=== PATIENT | male | born 1975 | race Caucasian/White ===

== ENCOUNTER 2020-10-06 19:23 | Inpatient (IN) ==
[2020-10-06] MEDS ORDERED: PANTOPRAZOLE BOLUS/DRIP 1 EA IV STA (19:54)
[2020-10-06] MEDS ORDERED: PANTOprazole 80 MG in DEXTROSE 5% 100 ML IV ONE (19:54)
[2020-10-06] MEDS ORDERED: SODIUM CHLORIDE 0.9% 1000ML 1,000 ML IV ONE (19:54)
--- NOTE | 2020-10-06 20:12 | Emergency Department Note ---
History of Present Illness General Chief complaint: Vomiting Stated complaint: VOMITING BLOOD, ALMOST PASSED OUT Time Seen by Provider: 10/06/20 19:35 Source: patient and family Mode of arrival: ambulatory Limitations: no limitations History of Present Illness Provider complaint: gi bleed Onset (ago): week(s) 2 Location: abdomen Radiation: non-radiation Severity: mild Pain Consistency: + constant Associated symptoms: + nausea/vomiting; no chest pain and no fever/chills Treatments prior to arrival: none This is a 45-year-old male presents emergency department with at bedside due to concern for GI bleed. Patient states 2 weeks ago he began having hard stools although still normal in color. Patient states he has had this previously and will increase his MiraLAX. He also then added a stool softener. States he had had some intermittent discomfort in the left upper quadrant, however no discernible pain. Patient states today he felt worse had a black formed stool, no other bright red blood. He then began to vomit. Patient vomited bright red blood multiple times and per family appeared pale and sweaty. Patient states he felt as though he was going to pass out so he laid down. Patient denies any prior history of peptic ulcer disease or GI bleed. Patient has previously had an anal fissure. Patient has previously had colonoscopy although he estimates this was approximately 15 years ago.Patient denies any use of aspirin, NSAIDs, or anticoagulation. No family history of any bleeding disorders or GI problems that he is aware of. Pt seen during a time of high acuity and national emergency pandemic while wearing PPE. Home Medications Medication Instructions Recorded Confirmed Type allopurinol 300 mg tablet 300 mg PO QA 08/19/19 10/06/20 History carvedilol 25 mg tablet 25 mg PO BID 08/19/19 10/06/20 History fenofibrate micronized 134 mg 134 mg PO DAILY 08/19/19 10/06/20 History capsule hydrochlorothiazide 25 mg tablet 25 mg PO DAILY 08/19/19 10/06/20 History lisinopril 40 mg tablet 40 mg PO DAILY 08/19/19 10/06/20 History rosuvastatin 10 mg tablet 10 mg PO DAILY 08/19/19 10/06/20 History amlodipine 5 mg PO DAILY 10/06/20 10/06/20 History clonidine HCl 0.3 mg PO BID 10/06/20 10/06/20 History fluticasone propionate 2 spray INTRANASAL DAILY 10/06/20 10/06/20 History hydralazine 25 mg PO TID 10/06/20 10/06/20 History Allergies Allergy/AdvReac Type Severity Reaction Status Date / Time No Known Allergies Allergy Mild Verified 10/06/20 21:38 Past Med/Surg History Medical History Dyslipidemia HTN (hypertension) Surgical History Hx of rotator cuff surgery Hx of wisdom tooth extraction Social History Smoking Status: Never smoker Hx Alcohol Use: Yes Alcohol type: other Hx Substance Use: No Preferred Language: Irish Beliefs That Will Affect Care: None marital status: Current Living Situation: Spouse current occupational status: employed 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 and A total of 10 systems reviewed and were otherwise negative Physical Exam Vital Signs Vital Signs - 24 hr 10/07/20 00:20 Pulse Rate 63 Pulse Rate from SpO2 Sensor 63 Respiratory Rate 21 Pulse Oximetry 97 GENERAL: alert, unwell appearing, well nourished, no distress, non-toxic, mildly diaphoretic EYE EXAM: normal conjunctiva, PERRL and EOM's grossly intact OROPHARYNX: no exudate, no erythema, lips, buccal mucosa, and tongue normal and mucous membranes are moist NECK: supple, no nuchal rigidity, no adenopathy, non-tender LUNGS: Clear to auscultation. Normal chest wall mechanics, no w/r/r HEART: no murmurs, S1 normal and S2 normal ABDOMEN: abdomen soft, non-tender, normo-active bowel sounds, no masses, no rebound or guarding. BACK: Back is symmetrical on inspection and there is no deformity, no midline tenderness, no CVA tenderness. SKIN: no rashes and no bruising, no petechiae UPPER EXTREMITIES: upper extremities are grossly normal. FROM, nml pulses b/l. LOWER EXTREMITIES: No pitting edema. FROM, nml pulses b/l. NEURO EXAM: Normal sensorium, cranial nerves II-XII grossly intact, normal speech, no gross weakness of arms, no gross weakness of legs. Gross sensation intact. Course Course 2001: BP improved. No recurrent hypotension or near syncope. No recurrent vomiting. 2127: Updated patient on results. was able to access his [facility] records to find a CBC from 2019 where his hemoglobin was 13.2. Prior hemoglobin in our EMR was 14. Patient states he is feeling slightly improved. Still awaiting CT. 2239: Updated patient on results. No recurrent pain or nausea. Blood pressure now elevated however patient due for nighttime blood pressure medications. 2324: Discussed with Dr. Rick. Administered Medications Carvedilol (Carvedilol 25 Mg Tab) 25 mg PO BID ESTHELA Stop: 11/06/20 08:59 Last Admin: 10/07/20 11:03 Dose: Not Given Documented by: [id number] Clonidine HCl (Clonidine Hcl 0.3 Mg Tab) 0.3 mg PO BID ESTHELA Stop: 11/06/20 08:59 Last Admin: 10/07/20 11:03 Dose: Not Given Documented by: [id number] Fluticasone Propionate (Fluticasone Propionate Na Spr 16 Gm Btl) 2 sprays NA DAILY ESTHELA Stop: 11/06/20 08:59 Last Admin: 10/07/20 08:17 Dose: 2 sprays Documented by: [id number] Sodium Chloride (Nss 1000ml) 1,000 mls @ 125 mls/hr IV .Q8H ESTHELA Stop: 11/06/20 02:07 Last Admin: 10/07/20 20:49 Dose: 125 mls/hr Documented by: [id number] Infusion: 10/07/20 18:56 Dose: 125 mls/hr Documented by: [id number] Admin: 10/07/20 10:56 Dose: 125 mls/hr Documented by: [id number] Infusion: 10/07/20 10:32 Dose: 125 mls/hr Documented by: [id number] Admin: 10/07/20 02:32 Dose: 125 mls/hr Documented by: [id number] Pantoprazole Sodium 40 mg/ (Dextrose) 100 mls @ 20 mls/hr IV Q5H ESTHELA Stop: 11/06/20 05:59 Last Admin: 10/07/20 21:02 Dose: 8 mg/hr, 20 mls/hr Documented by: [id number] Infusion: 10/07/20 21:02 Dose: 8 mg/hr, 20 mls/hr Documented by: [id number] Admin: 10/07/20 16:40 Dose: 8 mg/hr, 20 mls/hr Documented by: [id number] Infusion: 10/07/20 16:04 Dose: 0 mg/hr, 0 mls/hr Documented by: [id number] Admin: 10/07/20 10:58 Dose: 8 mg/hr, 20 mls/hr Documented by: [id number] Infusion: 10/07/20 10:58 Dose: 8 mg/hr, 20 mls/hr Documented by: [id number] Admin: 10/07/20 06:27 Dose: 8 mg/hr, 20 mls/hr Documented by: [id number] Insulin Aspart (Insulin Aspart 100 Units/Ml 3 Ml Pen) 0 units SC ACHS ESTHELA Stop: 11/06/20 05:59 Last Admin: 10/07/20 21:12 Dose: Not Given Documented by: [id number] Cosigned by: [id number] Admin: 10/07/20 17:33 Dose: 3 units Documented by: [id number] Cosigned by: [id number] Discontinued Medications Fentanyl Citrate (Fentanyl Citrate 100 Mcg/2 Ml Vial) Confirm Administered Dose 100 mcg .ROUTE .STK-MED ONE Stop: 10/07/20 12:39 Last Admin: 10/07/20 13:58 Dose: Not Given Documented by: [id number] Hydralazine HCl (Hydralazine Hcl 20 Mg/Ml Vial) 10 mg IV NOW STA Stop: 10/06/20 22:55 Last Admin: 10/07/20 01:21 Dose: Not Given Documented by: [id number] Sodium Chloride (Nss 1000ml) 1,000 mls @ 999 mls/hr IV .Q1H1M ONE Stop: 10/06/20 20:54 Last Infusion: 10/06/20 21:45 Dose: 0 mls/hr Documented by: [id number] Admin: 10/06/20 20:12 Dose: 999 mls/hr Documented by: [id number] Pantoprazole Sodium (Protonix Bolus/Drip) 0 mls @ 1 mls/hr IV ONE STA Stop: 10/06/20 19:55 Last Infusion: 10/07/20 05:07 Dose: 0 mls/hr Documented by: [id number] Admin: 10/06/20 21:05 Dose: 1 mls/hr Documented by: [id number] Pantoprazole Sodium 40 mg/ (Dextrose) 100 mls @ 20 mls/hr IV Q5H ESTHELA Stop: 11/05/20 20:09 Last Infusion: 10/07/20 07:26 Dose: 0 mg/hr, 0 mls/hr Documented by: [id number] Admin: 10/07/20 01:33 Dose: 8 mg/hr, 20 mls/hr Documented by: [id number] Infusion: 10/07/20 01:08 Dose: 0 mg/hr, 0 mls/hr Documented by: [id number] Admin: 10/06/20 22:04 Dose: 8 mg/hr, 20 mls/hr Documented by: [id number] Pantoprazole Sodium 80 mg/ (Dextrose) 120 mls @ 400 mls/hr IV NOW ONE Stop: 10/06/20 20:11 Last Infusion: 10/06/20 21:06 Dose: 0 mls/hr Documented by: [id number] Admin: 10/06/20 20:29 Dose: 400 mls/hr Documented by: [id number] Insulin Aspart (Insulin Aspart 100 Units/Ml 3 Ml Pen) 0 units SC Q6 ESTHELA Stop: 11/06/20 05:59 Last Admin: 10/07/20 14:18 Dose: Not Given Documented by: [id number] Cosigned by: [id number] Admin: 10/07/20 06:28 Dose: Not Given Documented by: [id number] Ioversol (Ioversol 100ml) 93 ml IV ONCE ONE Stop: 10/06/20 21:33 Last Admin: 10/06/20 21:32 Dose: 93 ml Documented by: [id number] Lidocaine HCl (Lidocaine Hcl 2% 2 Ml Vial/Amp(20mg/Ml)) Confirm Administered Dose 4 ml INFIL .STK-MED ONE Stop: 10/07/20 12:39 Last Admin: 10/07/20 13:59 Dose: Not Given Documented by: [id number] Metoprolol Tartrate (Metoprolol Tartrate 1 Mg/Ml Vial) 5 mg IV Q6 ESTHELA Stop: 11/06/20 11:59 Last Admin: 10/07/20 13:57 Dose: Not Given Documented by: [id number] Miscellaneous Information (Nursing To Pharmacy Communication) 1 ea N/A TODAY S Stop: 11/06/20 15:14 Last Admin: 10/07/20 16:11 Dose: Not Given Documented by: [id number] Nitroglycerin (Nitroglycerin 2% Ointment 30gm Tube) 1 inch EXT NOW ONE Stop: 10/07/20 13:46 Last Admin: 10/07/20 13:58 Dose: 1 inch Documented by: [id number] Ondansetron HCl (Ondansetron Inj 2 Mg/Ml 2 Ml Vial) Confirm Administered Dose 4 mg .ROUTE .STK-MED ONE Stop: 10/07/20 12:39 Last Admin: 10/07/20 13:58 Dose: Not Given Documented by: [id number] Propofol (Propofol Iv Emulsion 10 Mg/Ml 20 Ml Vial) Confirm Administered Dose 400 mg IV .STK-MED ONE Stop: 10/07/20 12:39 Last Admin: 10/07/20 13:58 Dose: Not Given Documented by: [id number] Critical Care Time Critical Care Time: Yes Total Critical Care Time: 42 Critical care of 42 min performed to assess and manage high likelihood of life- threatening GI bleed and hypotension, involving labs and imaging performed with assessment to evaluate GI bleed and hypotension diagnosis with frequent reassessment. This time includes bedside time, treatment discussions with patient/family/consultants, documentation time and excludes procedure time. Medical Decision Making Differential Diagnosis Differential diagnosis includes etiologies such as diverticulosis, AVM, coagulopathy, colitis, inflammatory bowel disease, malignancy, Malgorzata-Elias tear, esophagitis, peptic ulcer disease, variceal bleed, gastritis, epistaxis, fissure, hemorrhoids, as well as others were entertained. Medical Records Attestation: I reviewed the patient's medical records. Home Medications Current Medication List: was personally reviewed by me Laboratory Data Attestation: I reviewed the patient's lab results. Result diagrams: 10/07/20 17:21 10/07/20 04:54 Lab Results 10/06/20 10/06/20 10/06/20 Range/Units 20:07 20:07 20:07 WBC 14.95 H (4.8-10.8) K/uL RBC 3.57 L (4.7-6.1) M/uL Hgb 10.2 L (14.0-18.0) g/dL Hct 30.6 L (42-52) % MCV 85.7 (80-100) fL MCH 28.6 (25-34) pg MCHC 33.3 (32-36) g/dL RDW Std Deviation 44.1 (36.4-46.3) fL RDW Coeff of Luis Angel 14.1 (11.5-14.5) % Plt Count 325 (130-400) K/uL MPV 10.3 (7.4-10.4) fL Immature Gran % (Auto) 0.2 % Neut % (Auto) 72.0 % Lymph % (Auto) 20.0 % [place] % (Auto) 6.2 % Eos % (Auto) 1.3 % Baso % (Auto) 0.3 % Neut # (Auto) 10.77 H (1.4-6.5) K/uL Lymph # (Auto) 2.99 (1.2-3.4) K/uL [place] # (Auto) 0.92 H (0.11-0.59) K/uL Eos # (Auto) 0.20 (0-0.5) K/uL Baso # (Auto) 0.04 (0-0.2) K/uL Immature Gran # (Auto) 0.03 H (0.00-0.02) K/uL PT 11.6 (9.0-12.0) Seconds INR 1.2 H (0.9-1.1) Sodium (136-145) mmol/L Potassium (3.5-5.1) mmol/L Chloride (98-107) mmol/L Carbon Dioxide (21-32) mmol/L Anion Gap (3-11) BUN (7-18) mg/dl Creatinine (0.6-1.4) mg/dl Est Cr Clr Drug Dosing ml/min Est GFR ( Amer) Est GFR (Non-Af Amer) BUN/Creatinine Ratio (10-20) Glucose (70-99) mg/dl Calcium (8.5-10.1) mg/dl Magnesium (1.8-2.4) mg/dl Total Bilirubin (0.2-1) mg/dl AST (15-37) U/L ALT (12-78) U/L Alkaline Phosphatase (45-117) U/L Troponin I (0-0.045) ng/ml Total Protein (6.4-8.2) gm/dl Albumin (3.4-5.0) gm/dl Globulin (2.5-4.0) gm/dl Albumin/Globulin Ratio (0.9-2) Lipase (73-393) U/L COVID-19 Eval Order SARS-CoV-2 (PCR) (Negative) Influenza Type A (PCR) (Neg) Influenza Type B (PCR) (Neg) RSV (RT-PCR) (Neg) Blood Type O Positive Antibody Screen NEGATIVE Crossmatch See Detail 10/06/20 10/06/20 10/06/20 Range/Units 20:07 23:06 23:24 WBC (4.8-10.8) K/uL RBC (4.7-6.1) M/uL Hgb 10.1 L (14.0-18.0) g/dL Hct 29.9 L (42-52) % MCV (80-100) fL MCH (25-34) pg MCHC (32-36) g/dL RDW Std Deviation (36.4-46.3) fL RDW Coeff of Luis Angel (11.5-14.5) % Plt Count (130-400) K/uL MPV (7.4-10.4) fL Immature Gran % (Auto) % Neut % (Auto) % Lymph % (Auto) % [place] % (Auto) % Eos % (Auto) % Baso % (Auto) % Neut # (Auto) (1.4-6.5) K/uL Lymph # (Auto) (1.2-3.4) K/uL [place] # (Auto) (0.11-0.59) K/uL Eos # (Auto) (0-0.5) K/uL Baso # (Auto) (0-0.2) K/uL Immature Gran # (Auto) (0.00-0.02) K/uL PT (9.0-12.0) Seconds INR (0.9-1.1) Sodium 141 (136-145) mmol/L Potassium 3.6 (3.5-5.1) mmol/L Chloride 107 (98-107) mmol/L Carbon Dioxide 27 (21-32) mmol/L Anion Gap 7.0 (3-11) BUN 56 H (7-18) mg/dl Creatinine 1.56 H (0.6-1.4) mg/dl Est Cr Clr Drug Dosing 75.3 ml/min Est GFR ( Amer) 60.8 Est GFR (Non-Af Amer) 52.5 BUN/Creatinine Ratio 36.2 H (10-20) Glucose 204 H (70-99) mg/dl Calcium 8.8 (8.5-10.1) mg/dl Magnesium 1.8 (1.8-2.4) mg/dl Total Bilirubin 0.4 (0.2-1) mg/dl AST 13 L (15-37) U/L ALT 22 (12-78) U/L Alkaline Phosphatase 35 L (45-117) U/L Troponin I 0.029 (0-0.045) ng/ml Total Protein 6.9 (6.4-8.2) gm/dl Albumin 3.6 (3.4-5.0) gm/dl Globulin 3.3 (2.5-4.0) gm/dl Albumin/Globulin Ratio 1.1 (0.9-2) Lipase 124 (73-393) U/L COVID-19 Eval Order CovFluRsv at [facility] SARS-CoV-2 (PCR) (Negative) Influenza Type A (PCR) (Neg) Influenza Type B (PCR) (Neg) RSV (RT-PCR) (Neg) Blood Type Antibody Screen Crossmatch 10/06/20 Range/Units 23:24 WBC (4.8-10.8) K/uL RBC (4.7-6.1) M/uL Hgb (14.0-18.0) g/dL Hct (42-52) % MCV (80-100) fL MCH (25-34) pg MCHC (32-36) g/dL RDW Std Deviation (36.4-46.3) fL RDW Coeff of Luis Angel (11.5-14.5) % Plt Count (130-400) K/uL MPV (7.4-10.4) fL Immature Gran % (Auto) % Neut % (Auto) % Lymph % (Auto) % [place] % (Auto) % Eos % (Auto) % Baso % (Auto) % Neut # (Auto) (1.4-6.5) K/uL Lymph # (Auto) (1.2-3.4) K/uL [place] # (Auto) (0.11-0.59) K/uL Eos # (Auto) (0-0.5) K/uL Baso # (Auto) (0-0.2) K/uL Immature Gran # (Auto) (0.00-0.02) K/uL PT (9.0-12.0) Seconds INR (0.9-1.1) Sodium (136-145) mmol/L Potassium (3.5-5.1) mmol/L Chloride (98-107) mmol/L Carbon Dioxide (21-32) mmol/L Anion Gap (3-11) BUN (7-18) mg/dl Creatinine (0.6-1.4) mg/dl Est Cr Clr Drug Dosing ml/min Est GFR ( Amer) Est GFR (Non-Af Amer) BUN/Creatinine Ratio (10-20) Glucose (70-99) mg/dl Calcium (8.5-10.1) mg/dl Magnesium (1.8-2.4) mg/dl Total Bilirubin (0.2-1) mg/dl AST (15-37) U/L ALT (12-78) U/L Alkaline Phosphatase (45-117) U/L Troponin I (0-0.045) ng/ml Total Protein (6.4-8.2) gm/dl Albumin (3.4-5.0) gm/dl Globulin (2.5-4.0) gm/dl Albumin/Globulin Ratio (0.9-2) Lipase (73-393) U/L COVID-19 Eval Order SARS-CoV-2 (PCR) NEGATIVE (Negative) Influenza Type A (PCR) Negative (Neg) Influenza Type B (PCR) Negative (Neg) RSV (RT-PCR) Negative (Neg) Blood Type Antibody Screen Crossmatch Imaging Data Radiologist's Impression: Abdomen/Pelvis CT 10/06/20 20:12 CT abd pelvis IV con only CLINICAL HISTORY: Left upper quadrant abdominal pain. Gastrointestinal hemorrhage. COMPARISON STUDY: None. TECHNIQUE: Patient was scanned in a dynamic helical fashion during intravenous administration of 93 cc of Optiray 320 A dose lowering technique was utilized adhering to the principles of ALARA. CT DOSE: 922.02 mGy.cm FINDINGS: Lower chest: There are very subtle nonspecific left lower lobe groundglass opacities. Liver: The contrast-enhanced liver is normal in size, contour, and attenuation. There is no intrahepatic biliary ductal dilatation. The hepatic veins and portal veins are patent. Gallbladder: Unremarkable. Spleen: Top normal in size Pancreas: Unremarkable. Adrenal glands: Unremarkable. Kidneys: There is symmetric renal cortical enhancement. The kidneys are normal in size without hydronephrosis. Bowel: There are no transition zones indicate bowel obstruction. There is mild gastric distention. There is mixed attenuation gastric contents. Hemorrhage not excluded. There is no evidence of acute appendicitis. There are scattered colonic diverticula. There is no evidence of acute diverticulitis. Peritoneum: There is no intraperitoneal free air or abdominal ascites. There are small fat-containing abdominal hernia Vasculature: The abdominal aorta is normal in course and caliber. Adenopathy: None. Pelvic viscera: The bladder, and pelvic viscera are unremarkable. Skeletal structures: No destructive osseous lesions are seen. IMPRESSION: 1. No evidence of bowel obstruction. No evidence of free air 2. Normal appendix. 3. No evidence of acute diverticulitis. 4. Mild gastric distention with mixed attenuation contents. Hemorrhage not excluded. ACT 112: Negative or not required by law. Electronically signed by: Daniel Red M.D. 10/07/2020 7:[address] abdomen and pelvis with contrast: Stomach is distended with ingested material, fluid, and gas. Hyperdense material within the stomach may represent blood products. No hydronephrosis or obstruction. Decompressed sigmoid colon. Mild diverticulosis without evidence of diverticulitis. No bowel obstruction. Normal appendix. Mild prominence of the bladder wall may be secondary to underdistention. Please correlate with urinalysis of concern for cystitis. Small fat-containing billable hernia. Radiologist: Bella Jerez MD ECG Data Attestation: I personally reviewed and interpreted this ECG as follows: Indication: + vomiting and + weakness Rate (beats per minute): 58 Rhythm: + sinus bradycardia ECG Intervals/blocks: + Normal QRS and + Normal QT ECG [place]: + Normal ECG ST segments: + Normal ST segments MDM Narrative This is a 45-year-old male who presents due to concern for a near syncopal event and abrupt onset GI bleed. Patient initially with an episode of melena followed by multiple episodes of hematemesis and a near syncopal event. Patient with no prior GI history and no prior GI bleed. No obvious etiology of his symptoms. Patient initially hypotensive, pale, and diaphoretic on arrival. Patient laid supine, IV started and IV fluids initiated for the hypotension. No ectopy or dysrhythmia on telemetry. Patient denied abdominal pain or nausea on my initial exam. Labs drawn and sent including a type and screen. Patient started on Pr otonix bolus and drip. No history of significant alcohol abuse otherwise suspect esophageal varices. No use of anticoagulation to reverse. Following improvement in blood pressure and lab results patient was sent for CT imaging to rule out other causes. CT was reassuring although debris was noted in the stomach which is likely blood given recent events. A repeat H&H was drawn while patient was still in the emergency room as a precaution to make sure that his H&H was not continuing to trend down. Case discussed with hospitalist for additional evaluation and management and likely GI intervention. Patient and made aware of all results and were in agreement with plan. As patient was monitored, blood pressure became increased. Patient does have a history of hypertension and takes multiple medications. Patient was due in the evening for his blood pressure medications and given he was n.p.o., I began to slowly give him some of his medications IV. An order was placed for continuous cardiac monitoring. The monitor shows a rate of _82_ with _normal sinus_ rhythm. Impression & Plan Acute GI bleeding, Vomiting, Melena, Hypertension Discharge Plan Visit Data Chief Complaint: Vomiting Stated Complaint: VOMITING BLOOD, ALMOST PASSED OUT ED Provider: Jamilah Baker Discharge Problem: Acute GI bleeding, Vomiting, Melena, Hypertension Patient Disposition: Admitted As Inpatient Discharge Instructions Interventions: ED Discharge Assessment Last Done: 10/07/20 02:15 Discharge Problem: Vomiting Qualifiers: Vomiting type: unspecified Vomiting Intractability: non-intractable Nausea presence: without nausea Qualified Code(s): R11.11 - Vomiting without nausea Hypertension Qualifiers: Hypertension type: essential hypertension Qualified Code(s): I10 - Essential (primary) hypertension
[2020-10-06 20:20] LABS: Basophils # (auto) 0.04 K/uL (0-0.2); Basophils % (auto) 0.3 %; Eosinophils % (auto) 1.3 %; Hematocrit (blood only) 30.6 % (42-52); Hemoglobin 10.2 g/dL (14.0-18.0); Immature Granulocytes # (auto) 0.03 K/uL (0.00-0.02); Immature Granulocytes % (auto) 0.2 %; Lymphocytes # (auto) 2.99 K/uL (1.2-3.4); Mean Corpuscular Hemoglobin 28.6 pg (25-34); Mean Corpuscular Hgb Conc 33.3 g/dL (32-36); Mean Corpuscular Volume 85.7 fL (80-100); Mean Platelet Volume 10.3 fL (7.4-10.4); Monocytes # (auto) 0.92 K/uL (0.11-0.59); Monocytes % (auto) 6.2 %; Neutrophils # (auto) 10.77 K/uL (1.4-6.5); Platelet Count 325 K/uL (130-400); RDW Coefficient of Variation 14.1 % (11.5-14.5); RDW Standard Deviation 44.1 fL (36.4-46.3); Red Blood Count 3.57 M/uL (4.7-6.1); White Blood Count 14.95 K/uL (4.8-10.8)
[2020-10-06 20:28] LABS: INR 1.2 (0.9-1.1); Prothrombin Time 11.6 Seconds (9.0-12.0)
[2020-10-06 20:45] LABS: Albumin Level 3.6 gm/dl (3.4-5.0); BUN Creatinine Ratio 36.2 (10-20); Calcium 8.8 mg/dl (8.5-10.1); Creatinine Clr Calc Pharmacy 75.3 ml/min; Est GFR (African American) 60.8; Est GFR (Non-African American) 52.5; Magnesium 1.8 mg/dl (1.8-2.4); Potassium 3.6 mmol/L (3.5-5.1)
[2020-10-06 20:50] LABS: Albumin Globulin Ratio 1.1 (0.9-2); Bilirubin,Total 0.4 mg/dl (0.2-1); Globulin 3.3 gm/dl (2.5-4.0); Total Protein 6.9 gm/dl (6.4-8.2); Troponin I 0.029 ng/ml (0-0.045)
[2020-10-06] MEDS ORDERED: OPTIRAY 320 100ml IV ONE (21:32)
[2020-10-06] MEDS: PANTOprazole 40 MG in DEXTROSE 5% 100 ML IV SCH (22:04)
[2020-10-06] MEDS ORDERED: hydrALAZINE HCL 20 MG/ML VIAL IV STA (22:54)
[2020-10-06 23:22] LABS: Hematocrit (blood only) 29.9 % (42-52); Hemoglobin 10.1 g/dL (14.0-18.0)
[2020-10-07 00:20] LABS: Influenza A virus by PCR Negative (Neg); Influenza B virus by PCR Negative (Neg); RSV by PCR Negative (Neg); SARS CoV2 RNA(COVID-19) InHosp NEGATIVE (Negative)
[2020-10-07] MEDS: PANTOprazole 40 MG in DEXTROSE 5% 100 ML IV SCH ×5 (01:33→21:02)
[2020-10-07] MEDS ORDERED: hydrALAZINE HCL 20 MG/ML VIAL IV PRN (02:08)
[2020-10-07] MEDS ORDERED: ONDANSETRON INJ 2 MG/ML 2 ML VIAL IV PRN (02:08)
[2020-10-07] MEDS ORDERED: NITROGLYCERIN SL 0.4 MG/TAB TAB SL PRN (02:08)
[2020-10-07] MEDS ORDERED: SODIUM CHLORIDE 0.9% 250 ML IV PRN (02:08)
[2020-10-07] MEDS: SODIUM CHLORIDE 0.9% 1000ML 1,000 ML IV SCH ×3 (02:32→20:49)
[2020-10-07] MEDS ORDERED: CARBOHYDRATES FOR HYPOGLYCEMIA PO PRN (02:45)
[2020-10-07] MEDS ORDERED: GLUCOSE 40% GEL 15 GM TUBE PO PRN (02:45)
[2020-10-07] MEDS ORDERED: GLUCAGON FOR INJ 1 MG VIAL SQ PRN (02:45)
[2020-10-07] MEDS ORDERED: DEXTROSE 50% 50 ML SYRINGE IV PRN (02:45)
[2020-10-07] MEDS ORDERED: GLUCOSE 10 TABS/TUBE PO PRN (02:45)
--- NOTE | 2020-10-07 03:32 | History and Physical Report ---
DATE OF ADMISSION: 10/07/2020 CHIEF COMPLAINT: GI bleed. HISTORY OF PRESENT ILLNESS: This is a 45-year-old male with past medical history significant for gout, chronic sinusitis, allergic rhinitis, moderate obstructive sleep apnea, on CPAP, hypertension, obesity, chronic kidney disease stage II, persistent proteinuria, who presents with hematemesis. The patient says around 7:00 p.m., he had several episodes of bloody vomiting. Prior to that, he had episode of black stools. This is the first time he is having this and they brought the utensil in which he vomited. It seems to be a significant amount of bloody vomiting. Currently, the vomiting has stopped. His hemoglobin is 10.1 in the ER and his baseline hemoglobin possibly around 14. Currently resting comfortably and hemodynamically stable. The patient denies taking any aspirin or any [id number] NSAIDs. Does not smoke. Drinks alcohol occasionally. He had an episode of anal fissure about 15 years ago. At that time, the colonoscopy was done which was okay as per the patient, since then no similar complaints. No abdominal pain. Denies any chest pain, no shortness of breath. [place] dizzy after this episode. No headache, no blurred vision, no earache, no runny nose, no sore throat, no loss of sense of smell or taste. No cough, no fever, no chills. Currently resting comfortably and hemodynamically stable. SARS-CoV-2 negative. ALLERGIES: No known drug allergies. PAST MEDICAL HISTORY: As mentioned above. PAST SURGICAL HISTORY: Tooth extraction in 1995, right rotator cuff repair in 2008, treatment of anal fissure in 2003, vasectomy in 2004. MEDICATIONS: The patient is on allopurinol 300 mg p.o. a.m., amlodipine 5 mg p.o. daily, Coreg 25 mg p.o. b.i.d., clonidine 0.3 mg p.o. b.i.d., fenofibrate 134 mg p.o. daily, Flonase 2 sprays intranasal daily, hydralazine 25 mg p.o. t.i.d., hydrochlorothiazide 25 mg p.o. daily, lisinopril 40 mg p.o. daily, Crestor 10 mg p.o. daily. FAMILY HISTORY: Significant for father has heart disorder, PMR; mother had sleep apnea. SOCIAL HISTORY: . No smoking, no alcohol, no drug use. REVIEW OF SYSTEMS: As per HPI. Rest of the review of systems negative. PHYSICAL EXAMINATION: GENERAL: The patient is obese, not in acute distress. VITAL SIGNS: Temperature 36.6, pulse 62, respiratory rate 14, blood pressure 157/84, oxygen 99% on room air. HEENT: Pupils are equal, round, and reactive to light. No pallor, no icterus. Oral mucosa moist. NECK: No JVD, no neck masses seen. CARDIOVASCULAR: S1, S2 heard, regular rate and rhythm, no murmur, no gallop. RESPIRATORY SYSTEM: Normal AP diameter. No accessory muscle use. No wheezing, no crackles. ABDOMEN: Soft, bowel sounds present, nontender. No distention. CENTRAL NERVOUS SYSTEM: Cranial nerves II-XII are grossly intact. Nonfocal. EXTREMITIES: No edema, no erythema. LABORATORY DATA: WBC 14.9, hemoglobin 10.1, hematocrit 29.9, platelets 325. PT 11.6, INR 1.2. Sodium 141, potassium 3.6, chloride 107, bicarbonate 27, BUN 56, creatinine 1.5, serum glucose 204, calcium 8.8, magnesium 1.8, total bilirubin 0.4, AST 13, ALT 22, alkaline phosphatase 35. Troponin I of 0.029, lipase 124. SARS-CoV-2 PCR negative. Influenza A and B PCR negative. RSV PCR negative. EKG: Sinus bradycardia at the rate of 58, no acute ST changes seen. IMAGING DATA: CT of abdomen and pelvis with contrast shows stomach is distended with ingested material, fluid and gas. Hyperdense material within the stomach may represent blood products. No hydronephrosis or obstructing. Decompressed sigmoid colon. Mild diverticulosis without evidence of diverticulitis. No bowel obstruction. Normal appendix. Mild prominence of the bladder wall may be secondary to under distention. Small fat containing umbilical hernia. ASSESSMENT AND PLAN: This is a 45-year-old male who presents with significant hematemesis. 1. Hematemesis and also black stools: CAT scan is showing possible blood products in the stomach, not on aspirin or any NSAIDS. No history of alcoholism or smoking. This is the first episode, currently it seems bleeding has stopped. Started on Protonix drip in the ER, which will be continued. Will place him on IV fluids at normal saline at 125 mL per hour. Keep him n.p.o. Monitor in the tele floor. Consult GI and closely monitor. 2. Recent diagnosis of diabetes: The patient says he lost about 45 pounds in 6 months, but denies any heartburn or any symptoms. Will follow the blood sugars. We will place him on insulin sliding scale. 3. History of hypertension: Diagnosed in high school. Follows with nephrology. 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 Will continue with Coreg and clonidine if able to take p.o. and placed him on IV hydralazine p.r.n. If not even able to take Coreg and clonidine p.o., will change to clonidine patch and IV Lopressor. We will hold amlodipine, hydrochlorothiazide, and p.o. hydralazine and lisinopril for now and monitor the blood pressure closely. 4. Acute kidney injury on chronic kidney disease stage II secondary to longstanding hypertension. Baseline creatinine around 1, currently with creatinine of 1.5, most likely from above, getting fluids. Follow the repeat labs in a.m. 5. Obstructive sleep apnea, on CPAP. 6. Gout, on allopurinol, which we will hold. 7. Hyperlipidemia, on statin, which we will hold for now. 8. Deep vein thrombosis prophylaxis: Sequential compression devices. DISPOSITION: Closely monitor in the tele floor. Level 1 full code. Expect to discharge home and follow with family doctor. CARLI
[2020-10-07 05:08] LABS: Basophils # (auto) 0.02 K/uL (0-0.2); Basophils % (auto) 0.2 %; Eosinophils # (auto) 0.01 K/uL (0-0.5); Eosinophils % (auto) 0.1 %; Hematocrit (blood only) 27.5 % (42-52); Hemoglobin 9.1 g/dL (14.0-18.0); Immature Granulocytes # (auto) 0.03 K/uL (0.00-0.02); Immature Granulocytes % (auto) 0.3 %; Lymphocytes # (auto) 1.76 K/uL (1.2-3.4); Lymphocytes % (auto) 18.6 %; Mean Corpuscular Hemoglobin 28.3 pg (25-34); Mean Corpuscular Hgb Conc 33.1 g/dL (32-36); Mean Corpuscular Volume 85.7 fL (80-100); Mean Platelet Volume 9.7 fL (7.4-10.4); Monocytes # (auto) 0.84 K/uL (0.11-0.59); Monocytes % (auto) 8.9 %; Neutrophils # (auto) 6.78 K/uL (1.4-6.5); Neutrophils % (auto) 71.9 %; Platelet Count 287 K/uL (130-400); RDW Coefficient of Variation 14.2 % (11.5-14.5); RDW Standard Deviation 44.1 fL (36.4-46.3); Red Blood Count 3.21 M/uL (4.7-6.1); White Blood Count 9.44 K/uL (4.8-10.8)
[2020-10-07 05:25] LABS: BUN Creatinine Ratio 38.8 (10-20); Calcium 8.6 mg/dl (8.5-10.1); Est GFR (African American) 66.5; Est GFR (Non-African American) 57.3; Magnesium 1.8 mg/dl (1.8-2.4); Potassium 3.8 mmol/L (3.5-5.1)
[2020-10-07] MEDS: INSULIN ASPART 100 UNITS/ML 3 ML PEN SC SCH ×4 (06:28→21:12)
--- NOTE | 2020-10-07 07:25 | CT Scan Report ---
CT abd pelvis IV con only CLINICAL HISTORY: Left upper quadrant abdominal pain. Gastrointestinal hemorrhage. COMPARISON STUDY: None. TECHNIQUE: Patient was scanned in a dynamic helical fashion during intravenous administration of 93 c c of Optiray 320 A dose lowering technique was utilized adhering to the principles of ALARA. CT DOSE: 922.02 mGy.cm FINDINGS: Lower chest: There are very subtle nonspecific left lower lobe groundglass opacities. Liver: The contrast-enhanced liver is normal in size, contour, and attenuation. There is no intrahepa tic biliary ductal dilatation. The hepatic veins and portal veins are patent. Gallbladder: Unremarkable. Spleen: Top normal in size Pancreas: Unremarkable. Adrenal glands: Unremarkable. Kidneys: There is symmetric renal cortical enhancement. The kidneys are normal in size without hydron ephrosis. Bowel: There are no transition zones indicate bowel obstruction. There is mild gastric distention. Th ere is mixed attenuation gastric contents. Hemorrhage not excluded. There is no evidence of acute cecille endicitis. There are scattered colonic diverticula. There is no evidence of acute diverticulitis. Peritoneum: There is no intraperitoneal free air or abdominal ascites. There are small fat-containing abdominal hernia Vasculature: The abdominal aorta is normal in course and caliber. Adenopathy: None. Pelvic viscera: The bladder, and pelvic viscera are unremarkable. Skeletal structures: No destructive osseous lesions are seen. IMPRESSION: 1. No evidence of bowel obstruction. No evidence of free air 2. Normal appendix. 3. No evidence of acute diverticulitis. 4. Mild gastric distention with mixed attenuation contents. Hemorrhage not excluded. ACT 112: Negative or not required by law. Electronically signed by: Daniel Red M.D. 10/07/2020 7:23 AM
[2020-10-07] MEDS: FLUTICASONE PROPIONATE NA SPR 16 GM BTL SCH (08:17)
--- NOTE | 2020-10-07 09:10 | Gastrointestinal Consultation ---
Date of Consultation October 07, 2020 Assessment & Plan (1) Melena: 45 year old male admitted w/ anemia, hgb 9 from baseline 14 w/ report of large episodes of melanotic stool and hematemesis at home - hemodynamically stable, NPO on IV PPI. He endorses new diagnosis of diabetes and 40 lb weight loss. DDX discussed: ulcer, tear, AVM vs other NPO IV PPI drip EGD today for evaluation Trend HGB Monitor and document all output Transfuse PRN per primary team OP Colonoscopy given weight loss Weight loss - EGD today - Colon as OP - CT W/ IV contrast but no oral (2) Vomiting: Supervising Physician Co-Signing Physician Notes I have seen and examined the patient with ABDON Rojas whose note reflects our findings and plan. Melena and hematemesis yesterday. None since. on PPI gtt. Epig pain. EGD planned today to evaluate for PUD. History of Present Illness Reason for Consultation: melena, hematemesis Requesting Physician: Pia Attending Physician: Briana Palacio MD History of Present Illness 45 year old male with history of HTN, dyslipidemia, MARIAJOSE, DM others below who presents through the ED w/ concern of melena/hematemesis, admitted w/ anemia. Pt was seen and evaluated, chart reviewed. Tells me yesterday he just did not feel well. Had nausea all day, no appetite and was tired. Around evening time his nausea worsened and he moved large volume dark, tarry stools and moments later he had emesis. Vomit was all bright red blood. Denies coffee ground emesis or previous episode of vomiting. Since, has not moved his bowels or had any vomiting. Today is feeling somewhat better. No fever, chills, CP, SOB. In the ED, he was hemodynamically stable. HGB 9.1 from baseline 14,. BUN 56 w/ TEACHER AIDE CLERICAL 1.4. CT shows gastric distention and hemorrhage was unable to be ruled out. He was made NPO and started on IV PPI Denies ETOH Denies NSAIDs Has had recent weight loss of 40 lbs No family history of liver disease No family history of IBD No family history of GI malignancy Allergies Allergy/AdvReac Type Severity Reaction Status Date / Time No Known Allergies Allergy Mild Verified 10/06/20 21:38 Home Medications Medication Instructions Recorded Confirmed Type allopurinol 300 mg tablet 300 mg PO QAM 08/19/19 10/06/20 History carvedilol 25 mg tablet 25 mg PO BID 08/19/19 10/06/20 History fenofibrate micronized 134 mg 134 mg PO DAILY 08/19/19 10/06/20 History capsule hydrochlorothiazide 25 mg tablet 25 mg PO DAILY 08/19/19 10/06/20 History lisinopril 40 mg tablet 40 mg PO DAILY 08/19/19 10/06/20 History rosuvastatin 10 mg tablet 10 mg PO DAILY 08/19/19 10/06/20 History amlodipine 5 mg PO DAILY 10/06/20 10/06/20 History clonidine HCl 0.3 mg PO BID 10/06/20 10/06/20 History fluticasone propionate 2 spray INTRANASAL DAILY 10/06/20 10/06/20 History hydralazine 25 mg PO TID 10/06/20 10/06/20 History Patient History Medical History Dyslipidemia HTN (hypertension) Surgical History Hx of rotator cuff surgery Hx of wisdom tooth extraction Social History Smoking Status: Never smoker Hx Alcohol Use: Yes Alcohol type: other Hx Substance Use: No Preferred Language: Korean Beliefs That Will Affect Care: None marital status: Current Living Situation: Spouse current occupational status: employed current occupation: Works at [employer] in [employer] External Feels Safe at Home: Yes Safety Concerns: Feels Safe At This Time Assistive Devices: Glasses Review of Systems Constitutional: + fatigue, + malaise and + weakness; no fever and no chills Respiratory: no cough and no dyspnea Cardiovascular: no chest pain and no chest pain at rest Gastrointestinal: + hematemesis (yesterday) and + melena (yesterdat) Physical Exam Constitutional: well developed and well nourished; no acute distress Neck: trachea midline Respiratory: normal respiratory effort; no respiratory distress Cardiovascular: Rate/Rhythm: + tachycardic Gastrointestinal (Abdomen): normal bowel sounds, soft, nontender, no hepatosplenomegaly Results & Data ([facility]) Vital Signs (Past 12 Hours) Vital Signs Temp Pulse Pulse Resp BP BP Pulse Ox 10/07/20 07:05 36.8 C 62 18 154/74 H 99 10/07/20 05:14 37.3 C 66 18 135/75 98 10/07/20 02:03 37.0 C 76 18 141/81 H 99 10/07/20 01:30 71 18 143/77 H 98 10/07/20 01:20 65 2 L 97 10/07/20 01:10 65 14 149/86 H 97 10/07/20 01:00 67 19 149/83 H 98 10/07/20 00:40 69 16 97 10/07/20 00:31 65 16 98 10/07/20 00:30 62 14 157/84 H 99 10/07/20 00:20 63 21 97 10/07/20 00:01 61 16 99 10/07/20 00:00 59 L 16 138/81 98 10/06/20 23:40 58 L 14 97 10/06/20 23:31 60 20 98 10/06/20 23:30 58 L 6 L 135/79 97 10/06/20 23:20 60 18 99 10/06/20 23:16 59 L 14 146/81 H 97 10/06/20 23:00 65 23 214/111 H 99 10/06/20 22:40 60 16 97 10/06/20 22:30 60 15 206/101 H 97 10/06/20 22:20 61 16 98 10/06/20 22:00 60 15 197/104 H 98 10/06/20 21:44 62 13 216/91 H 98 10/06/20 21:43 63 24 99 10/06/20 21:20 58 L 14 100 (1) Vomiting Nausea presence: without nausea Vomiting Intractability: non-intractable Vomiting type: unspecified Qualified Code(s): R11.11 - Vomiting without nausea
[2020-10-07] MEDS: carvediloL 25 MG TAB PO SCH (11:03)
[2020-10-07] MEDS: cloNIDine HCL 0.3 MG TAB PO SCH (11:03)
[2020-10-07 11:09] LABS: Hematocrit (blood only) 26.8 % (42-52); Hemoglobin 8.9 g/dL (14.0-18.0)
[2020-10-07] MEDS ORDERED: METOPROLOL TARTRATE 1 MG/ML VIAL IV SCH (12:00)
--- NOTE | 2020-10-07 12:05 | Anesthesiology Consultation ---
Date of Service October 07, 2020 Assessment & Plan Chart Review Chart Review: Acceptable Risk for Surgery and Patient NOT seen in Pre Admission Testing Consults Requested none ASA ASA3 Proposed Anesthesia Anesthesia Type: MAC Risk / Benefits Reviewed With: PT / POA / Parent / Guardian, Accepts Plan and Informed Consent Obtained Additional Comments: covid test negative History Surgery Operation Date: 10/07/20 16:00 Proposed Procedures p Esophagogastroduodenoscopy Dr Colmenares - Nurys Colmenares, DO Height/Weight Height: 6 ft Weight: 108.4 kg Allergies Allergy/AdvReac Type Severity Reaction Status Date / Time No Known Allergies Allergy Mild Verified 10/06/20 21:38 Medications Home Medications Medication Instructions Recorded Confirmed Last Taken allopurinol 300 mg tablet 300 mg PO QAM 08/19/19 10/06/20 Unknown carvedilol 25 mg tablet 25 mg PO BID 08/19/19 10/06/20 Unknown fenofibrate micronized 134 mg 134 mg PO DAILY 08/19/19 10/06/20 Unknown capsule hydrochlorothiazide 25 mg tablet 25 mg PO DAILY 08/19/19 10/06/20 Unknown lisinopril 40 mg tablet 40 mg PO DAILY 08/19/19 10/06/20 Unknown rosuvastatin 10 mg tablet 10 mg PO DAILY 08/19/19 10/06/20 Unknown amlodipine 5 mg PO DAILY 10/06/20 10/06/20 Unknown clonidine HCl 0.3 mg PO BID 10/06/20 10/06/20 Unknown fluticasone propionate 2 spray INTRANASAL DAILY 10/06/20 10/06/20 Unknown hydralazine 25 mg PO TID 10/06/20 10/06/20 Unknown Active Medications Generic Name Dose Route Start Last Admin Trade Name Freq PRN Reason Stop Dose Admin Carvedilol 25 mg 10/07/20 09:00 10/07/20 11:03 Carvedilol 25 Mg Tab PO 11/06/20 08:59 Not Given BID ESTHELA Clonidine HCl 0.3 mg 10/07/20 09:00 10/07/20 11:03 Clonidine Hcl 0.3 Mg Tab PO 11/06/20 08:59 Not Given BID ESTHELA Fluticasone Propionate 2 sprays 10/07/20 09:00 10/07/20 08:17 Fluticasone Propionate Na Spr 16 Gm Btl NA 11/06/20 08:59 2 sprays DAILY ESTHELA Administration Sodium Chloride 1,000 mls @ 125 mls/hr 10/07/20 02:08 10/07/20 10:56 Nss 1000ml IV 11/06/20 02:07 125 mls/hr .Q8H ESTHELA Administration Pantoprazole Sodium 40 mg/ 100 mls @ 20 mls/hr 10/07/20 06:00 10/07/20 10:58 Dextrose IV 11/06/20 05:59 8 mg/hr Q5H ESTHELA 20 mls/hr Administration 8 MG/HR Insulin Aspart 0 units 10/07/20 06:00 10/07/20 06:28 Insulin Aspart 100 Units/Ml 3 Ml Pen SC 11/06/20 05:59 Not Given Q6 ESTHELA NPO Date Last Intake of Fluids: 10/06/20 Time Last Intake of Fluids: 13:00 Date Last Intake of Solids: 10/06/20 Time Last Intake of Solids: 13:00 Past Medical History Medical History Dyslipidemia HTN (hypertension) Exercise / Class Metabolic Activity II 4-5 Yardwork/Stairs/Walk up hill Past Surgical History Surgical History Hx of rotator cuff surgery Hx of wisdom tooth extraction Past Anesthesia History No Hx of Anesthesia Complications and No Family Hx of Anesthesia Complications History of PONV No Hx of PONV and No Hx of Motion Sickness Social History Smoking Status: Never smoker Hx Alcohol Use: Yes Alcohol type: other alcohol intake frequency: holidays/special occasions only Hx Substance Use: No Physical Exam Vital Signs Last Vital Signs Temp 37 C 10/07/20 11:43 Pulse 84 10/07/20 11:43 Resp 20 10/07/20 11:43 BP 185/94 H 10/07/20 11:43 Pulse Ox 99 10/07/20 11:43 Constitutional + obese ENMT Mouth: no dentition abnormality Thyromental Distance: > or= 3.5 Finger Breadths Mallampati Class: II Neck normal visual inspection and trachea midline; neck extension not limited Respiratory normal respiratory effort Auscultation: lungs clear to auscultation bilaterally Cardiovascular Rate/Rhythm: regular rate and regular rhythm Heart Sounds: no murmur Vessels: no carotid bruit Musculoskeletal Spine: normal cervical ROM Extremities: extremities normal to inspection Neurologic moves all extremities Motor/Sensory: no sensory deficit Psychiatric Orientation: alert and oriented x 3 Testing Laboratory Results 10/07/20 10:50 10/07/20 04:54 PT 11.6 Seconds (9.0-12.0) 10/06/20 20:07 INR 1.2 (0.9-1.1) H 10/06/20 20:07 Blood Type O Positive 10/06/20 20:07 Antibody Screen NEGATIVE 10/06/20 20:07 10/07/20 06:05 POC Glucose 154 H Electrocardiogram Date: 10/06/20 Findings: + SB @ (at 58)
[2020-10-07] MEDS ORDERED: ePHEDrine sulfate 50 MG/ML AMP IV PRN (12:07)
[2020-10-07] MEDS ORDERED: ATROPINE SULFATE 0.1 MG/ML 10ML SYR IV PRN (12:07)
[2020-10-07] MEDS ORDERED: fentaNYL citrate 100 MCG/2 ML VIAL ONE (12:38)
[2020-10-07] MEDS ORDERED: LIDOCAINE HCL 2% 2 ML VIAL/AMP(20MG/ML) INFIL ONE (12:38)
[2020-10-07] MEDS ORDERED: ONDANSETRON INJ 2 MG/ML 2 ML VIAL ONE (12:38)
[2020-10-07] MEDS ORDERED: PROPOFOL IV EMULSION 10 MG/ML 20 ML VIAL IV ONE (12:38)
--- NOTE | 2020-10-07 12:44 | GI REPORT ---
Patient Name: Tino Tucker Procedure Date: 10/07/2020 12:24 PM Date of : 1975 Admit Type: Inpatient Age: 45 Gender: Male Attending MD: Nurys Colmenares DO Procedure: Upper GI endoscopy Providers: Nurys Colmenares DO Referring MD: Briana Palacio Indications: Acute post hemorrhagic anemia, Hematemesis, Melena Medicines: Propofol per Anesthesia Complications: No immediate complications. Estimated blood loss: Minimal. Estimated Blood Loss: Estimated blood loss was minimal. Procedure: Pre-Anesthesia Assessment: - Prior to the procedure, a History and Physical was performed, and patient medications, allergies and sensitivities were reviewed. The patient's tolerance of previous anesthesia was reviewed. - The risks and benefits of the procedure and the sedation options and risks were discussed with the patient. All questions were answered and informed consent was obtained. - Patient identification and proposed procedure were verified prior to the procedure by the physician and the nurse. The procedure was verified in the pre-procedure area in the procedure room. - Mental Status Examination: alert and oriented. Airway Examination: normal oropharyngeal airway and neck mobility. Respiratory Examination: clear to auscultation. CV Examination: normal. Abdominal Examination: bowel sounds present, abdomen soft and non-tender, no masses or organomegaly noted. - ASA Grade Assessment: III - A patient with severe systemic disease. After obtaining informed consent, the endoscope was passed under direct vision. Throughout the procedure, the patient's blood pressure, pulse, and oxygen saturations were monitored continuously. The Endoscope was introduced through the mouth, and advanced to the body of the stomach. The upper GI endoscopy was accomplished without difficulty. The patient tolerated the procedure well. Findings: A single nodule was found in the lower third of the esophagus. Biopsies were taken with a cold forceps for histology. Verification of patient identification for the specimen was done by the physician and nurse using the patient's name and date. Estimated blood loss was minimal. Clotted blood was found in the gastric body. Impression: - Nodule found in the esophagus. Biopsied. - ?MW tear. - Clotted blood in the gastric body. Recommendation: - Await pathology results. - Continue IV PPI gtt for another 24 hours. - Would not advance diet beyond clears today given large clot burden in the stomach. - Will need a repeat EGD either Saturday or as an outpatient next week to further evaluate the esophageal nodule and the remainder of the stomach which is currently obscured. - [facility] for [facility] care. Nurys Colmenares D.O. Nurys Colmenares, 10/07/2020 12:43:48 PM This report has been signed electronically. Note Initiated On: 10/07/2020 12:24 PM Number of Addenda: 0 I attest to the content of the Intraoperative Record and orders documented therein, exceptions below {[id number]}
--- NOTE | 2020-10-07 12:45 | Anesthesiology Progress Note ---
Date of Service October 07, 2020 Anesthesia Post Procedure Vital Signs Vital Signs: Temp Pulse Pulse Resp BP BP Pulse Ox 10/07/20 11:43 37 C 84 20 185/94 H 99 10/07/20 10:20 77 10/07/20 07:05 36.8 C 62 18 154/74 H 99 10/07/20 05:14 37.3 C 66 18 135/75 98 10/07/20 02:03 37.0 C 76 18 141/81 H 99 10/07/20 01:30 71 18 143/77 H 98 10/07/20 01:20 65 2 L 97 10/07/20 01:10 65 14 149/86 H 97 10/07/20 01:00 67 19 149/83 H 98 10/07/20 00:40 69 16 97 10/07/20 00:31 65 16 98 10/07/20 00:30 62 14 157/84 H 99 10/07/20 00:20 63 21 97 10/07/20 00:01 61 16 99 10/07/20 00:00 59 L 16 138/81 98 10/06/20 23:40 58 L 14 97 10/06/20 23:31 60 20 98 10/06/20 23:30 58 L 6 L 135/79 97 10/06/20 23:20 60 18 99 10/06/20 23:16 59 L 14 146/81 H 97 10/06/20 23:00 65 23 214/111 H 99 10/06/20 22:40 60 16 97 10/06/20 22:30 60 15 206/101 H 97 10/06/20 22:20 61 16 98 10/06/20 22:00 60 15 197/104 H 98 10/06/20 21:44 62 13 216/91 H 98 10/06/20 21:43 63 24 99 10/06/20 21:20 58 L 14 100 10/06/20 21:00 61 20 150/79 H 99 10/06/20 20:40 60 15 99 10/06/20 20:30 63 16 111/72 97 10/06/20 20:25 67 23 96 10/06/20 19:39 66 20 120/84 97 10/06/20 19:30 36.6 C 87 18 87/53 L 92 Transfer of Care Handoff Completed per policy Notes Mental Status: alert / awake / arousable Patient Amnestic to Procedure: Yes Nausea / Vomiting: adequately controlled Pain: adequately controlled Airway Patency, RR, SpO2: stable & adequate BP & HR: stable & adequate Hydration State: stable & adequate Anesthetic Complications: no major complications apparent
[2020-10-07] MEDS ORDERED: NITROGLYCERIN 2% OINTMENT 30GM TUBE EXT ONE (13:45)
[2020-10-07] MEDS ORDERED: METOPROLOL TARTRATE 1 MG/ML VIAL IV PRN (13:45)
[2020-10-07] MEDS ORDERED: Nursing to Pharmacy Communication SCH (15:15)
--- NOTE | 2020-10-07 16:04 | Electrocardiogram Report ---
Test Reason : Blood Pressure : / mmHG Vent. Rate : 058 BPM Atrial Rate : 058 BPM P-R Int : 182 ms QRS Dur : 090 ms QT Int : 418 ms P-R-T Axes : 038 051 051 degrees QTc Int : 410 ms Sinus bradycardia Possible Left atrial enlargement Borderline ECG No previous ECGs available Confirmed by Des Soares ([id number]) on 10/07/2020 4:04:12 PM Referred By: REFERRED SELF Confirmed By:Des Soares
--- NOTE | 2020-10-07 16:10 | Hospitalist Progress Note ---
Date of Service October 07, 2020 Assessment & Plan (1) Acute GI bleeding: Presented with open wound acute onset likely upper GI bleed With hematemesis and melena-no history of any NSAID use Minimal epigastric discomfort prior to this event Hemoglobin dropped a little from 10.1 to 8.9 as of 10/07/2020 Appreciate GI input Status post partially successful EGD due to blood-filled stomach 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-Elias tear We will continue intravenous Protonix and monitor H&H Likely to have repeat EGD on Saturday or earlier if the condition gets worse (2) Hypertension: Has history of hypertension since a child Likely secondary to chronic kidney disease with ongoing proteinuria Blood pressure seems reasonably controlled while in the hospital We will continue current medication (3) Chronic kidney disease (CKD): History of chronic kidney disease stage II Ongoing proteinuria Creatinine is up secondary to GI bleed We will monitor kidney function (4) Sleep apnea with use of continuous positive airway pressure (CPAP): Continue CPAP at night History of gout We will hold allopurinol Hyperlipidemia Continue statin DVT prophylaxis SCDs Admission and Anticipated Discharge Date Admission Date: October 07, 2020 Subjective 10/07/2020 The patient was seen and examined in telemetry unit He was admitted yesterday with hematemesis and melena with history of very high blood pressure and chronic kidney disease Stage II & other medical conditions as mentioned in H&P His hemoglobin dropped to 8.9 from 10.1 on 10/06/2020 No more hematemesis Status post partially successful EGD Denies any significant symptoms Review of Systems Review of Systems: All systems reviewed and are unremarkable except as noted below Gastrointestinal: no abdominal pain, no bloating, no nausea, no vomiting, no coffee ground emesis and no diarrhea/loose stools Physical Exam Physical Exam: Lying in bed comfortably Constitutional: well developed, well nourished and + obese; not ill appearing Eyes: PERRL, conjunctivae normal, anicteric sclerae ENMT: external ear and nose normal, oropharynx normal Neck: trachea midline, no thyromegaly Respiratory: no respiratory distress Auscultation: lungs clear to auscultation bilaterally Cardiovascular: Rate/Rhythm: regular rate and regular rhythm Heart Sounds: no murmur Extremities: no edema Gastrointestinal (Abdomen): Inspection/Auscultation: normal bowel sounds; abdomen not distended Percussion/Palpation: abdomen soft; abdomen nontender Musculoskeletal: No acute arthritis in any joint Neurologic: Alert, awake and oriented x3 Psychiatric: A+Ox3, euthymic affect Lymphatic: no cervical or axillary lymphadenopathy Results & Data Results & Data ([facility]) Vital Signs (Past 12 Hours) Vital Signs Temp Pulse Pulse Resp BP Pulse Ox 10/07/20 13:45 78 18 176/87 H 97 10/07/20 13:11 76 16 188/106 H 99 10/07/20 12:56 74 16 177/102 H 98 10/07/20 12:41 80 16 178/81 H 99 10/07/20 11:43 37 C 84 20 185/94 H 99 10/07/20 10:20 77 10/07/20 07:05 36.8 C 62 18 154/74 H 99 10/07/20 05:14 37.3 C 66 18 135/75 98 Laboratory Results Short CBC 10/06/20 10/06/20 10/07/20 Range/Units 20:07 23:06 04:54 WBC 14.95 H 9.44 (4.8-10.8) K/uL Hgb 10.2 L 10.1 L 9.1 L (14.0-18.0) g/dL Hct 30.6 L 29.9 L 27.5 L (42-52) % Plt Count 325 287 (130-400) K/uL 10/07/20 Range/Units 10:50 WBC (4.8-10.8) K/uL Hgb 8.9 L (14.0-18.0) g/dL Hct 26.8 L (42-52) % Plt Count (130-400) K/uL BMP 10/06/20 10/07/20 20:07 04:54 Sodium 141 142 Potassium 3.6 3.8 Chloride 107 110 H Carbon Dioxide 27 30 BUN 56 H 56 H Creatinine 1.56 H 1.45 H Glucose 204 H 145 H Calcium 8.8 8.6 Cardiac Enzymes 10/06/20 Range/Units 20:07 Troponin I 0.029 (0-0.045) ng/ml Liver Function 10/06/20 Range/Units 20:07 Total Bilirubin 0.4 (0.2-1) mg/dl AST 13 L (15-37) U/L ALT 22 (12-78) U/L Alkaline Phosphatase 35 L (45-117) U/L Albumin 3.6 (3.4-5.0) gm/dl Medications Administered Current Inpatient Medications Atropine Sulfate (Atropine Sulfate 0.1 Mg/Ml 10ml Syr) 0.5 mg IV Q1M PRN PRN Reason: PACU Use-HR<40 &/or Bradycardi Stop: 10/07/20 20:07 Carvedilol (Carvedilol 25 Mg Tab) 25 mg PO BID ESTHELA Stop: 11/06/20 08:59 Last Admin: 10/07/20 11:03 Dose: Not Given Documented by: Clonidine HCl (Clonidine Hcl 0.3 Mg Tab) 0.3 mg PO BID ESTHELA Stop: 11/06/20 08:59 Last Admin: 10/07/20 11:03 Dose: Not Given Documented by: Dextrose (Dextrose 50% 50 Ml Syringe) 25 - 50 ml IV UD PRN; Protocol PRN Reason: Hypoglycemia Protocol Stop: 11/06/20 02:44 Ephedrine Sulfate (Ephedrine Sulfate 50 Mg/Ml Amp) 5 mg IV Q5M PRN PRN Reason: PACU Use Only-SBP<90 mmHg Stop: 10/07/20 20:07 Fluticasone Propionate (Fluticasone Propionate Na Spr 16 Gm Btl) 2 sprays NA DAILY [facility] Stop: 11/06/20 08:59 Last Admin: 10/07/20 08:17 Dose: 2 sprays Documented by: Glucagon (Glucagon For Inj 1 Mg Vial) 1 mg SQ UD PRN; Protocol PRN Reason: Hypoglycemia Protocol Stop: 11/06/20 02:44 Glucose (Glucose 40% Gel 15 Gm Tube) 15 - 30 gm PO UD PRN; Protocol PRN Reason: Hypoglycemia Protocol Stop: 11/06/20 02:44 Glucose (Glucose 10 Tabs/Tube) 4 - 8 tabs PO UD PRN; Protocol PRN Reason: Hypoglycemia Protocol Stop: 11/06/20 02:44 Sodium Chloride (Nss 1000ml) 1,000 mls @ 125 mls/hr IV .Q8H ESTHELA Stop: 11/06/20 02:07 Last Admin: 10/07/20 10:56 Dose: 125 mls/hr Documented by: Pantoprazole Sodium 40 mg/ (Dextrose) 100 mls @ 20 mls/hr IV Q5H ESTHELA Stop: 11/06/20 05:59 Last Admin: 10/07/20 10:58 Dose: 8 mg/hr, 20 mls/hr Documented by: Insulin Aspart (Insulin Aspart 100 Units/Ml 3 Ml Pen) 0 units SC ACHS ESTHELA Stop: 11/06/20 05:59 Metoprolol Tartrate (Metoprolol Tartrate 1 Mg/Ml Vial) 5 mg IV Q6 PRN PRN Reason: Blood Pressure - High Stop: 11/06/20 11:59 Miscellaneous (Carbohydrates For Hypoglycemia ) 15 - 30 gm PO UD PRN PRN Reason: Hypoglycemia Treatment Stop: 11/06/20 02:44 Nitroglycerin (Nitroglycerin Sl 0.4 Mg/Tab Tab) 0.4 mg SL UD PRN PRN Reason: Chest Pain Stop: 11/06/20 02:07 Ondansetron HCl (Ondansetron Inj 2 Mg/Ml 2 Ml Vial) 4 mg IV Q6H PRN PRN Reason: Nausea Stop: 11/06/20 02:07 (1) Hypertension Hypertension type: essential hypertension Qualified Code(s): I10 - Essential (primary) hypertension
[2020-10-07 17:31] LABS: Hematocrit (blood only) 25.9 % (42-52); Hemoglobin 8.6 g/dL (14.0-18.0)
[2020-10-08] MEDS: PANTOprazole 40 MG in DEXTROSE 5% 100 ML IV SCH ×3 (02:13→12:20)
[2020-10-08] MEDS: SODIUM CHLORIDE 0.9% 1000ML 1,000 ML IV SCH ×2 (05:14→12:00)
[2020-10-08] MEDS: INSULIN ASPART 100 UNITS/ML 3 ML PEN SC SCH ×4 (08:29→20:48)
[2020-10-08 08:30] LABS: Basophils # (auto) 0.03 K/uL (0-0.2); Basophils % (auto) 0.5 %; Eosinophils # (auto) 0.05 K/uL (0-0.5); Eosinophils % (auto) 0.8 %; Hematocrit (blood only) 23.9 % (42-52); Hemoglobin 7.8 g/dL (14.0-18.0); Immature Granulocytes # (auto) 0.03 K/uL (0.00-0.02); Immature Granulocytes % (auto) 0.5 %; Lymphocytes # (auto) 2.07 K/uL (1.2-3.4); Lymphocytes % (auto) 33.7 %; Mean Corpuscular Hemoglobin 28.6 pg (25-34); Mean Corpuscular Hgb Conc 32.6 g/dL (32-36); Mean Corpuscular Volume 87.5 fL (80-100); Mean Platelet Volume 9.6 fL (7.4-10.4); Monocytes # (auto) 0.55 K/uL (0.11-0.59); Neutrophils # (auto) 3.41 K/uL (1.4-6.5); Neutrophils % (auto) 55.5 %; Platelet Count 221 K/uL (130-400); RDW Coefficient of Variation 14.8 % (11.5-14.5); RDW Standard Deviation 46.9 fL (36.4-46.3); Red Blood Count 2.73 M/uL (4.7-6.1); White Blood Count 6.14 K/uL (4.8-10.8)
[2020-10-08] MEDS: FLUTICASONE PROPIONATE NA SPR 16 GM BTL SCH (08:36)
[2020-10-08 08:54] LABS: RBC Morphology Unremarkable
[2020-10-08 09:07] LABS: BUN Creatinine Ratio 25.6 (10-20); Calcium 8.3 mg/dl (8.5-10.1); Creatinine Clr Calc Pharmacy 83.1 ml/min; Est GFR (African American) 69.3; Est GFR (Non-African American) 59.8; Potassium 3.6 mmol/L (3.5-5.1)
--- NOTE | 2020-10-08 13:18 | Hospitalist Progress Note ---
Date of Service October 08, 2020 Assessment & Plan (1) Acute GI bleeding: Presented with open wound acute onset likely upper GI bleed With hematemesis and melena-no history of any NSAID use Minimal epigastric discomfort prior to this event Hemoglobin dropped a little from 10.1 to 8.9 as of 10/07/2020 Appreciate GI input Status post partially successful EGD due to blood-filled stomach 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-Elias tear We will continue intravenous Protonix and monitor H&H Likely to have repeat EGD on Saturday or earlier if the condition gets worse Hemoglobin is a little dropped to 7.8 from 8.6 yesterday No more melena but has not moved yet We will continue Protonix intravenously 2 times daily-likely EGD on Saturday (2) Hypertension: Has history of hypertension since a child Likely secondary to chronic kidney disease with ongoing proteinuria Blood pressure seems reasonably controlled while in the hospital We will continue current medication Blood pressure remains at the upper side 162/82 We will discontinue intravenous normal saline (3) Chronic kidney disease (CKD): History of chronic kidney disease stage II Ongoing proteinuria Creatinine is up secondary to GI bleed We will monitor kidney function-creatinine has been normalized (4) Sleep apnea with use of continuous positive airway pressure (CPAP): Continue CPAP at night History of gout We will hold allopurinol Hyperlipidemia Continue statin DVT prophylaxis SCDs Advised to ambulate more Admission and Anticipated Discharge Date Admission Date: October 07, 2020 Subjective 10/07/2020 The patient was seen and examined in telemetry unit He was admitted yesterday with hematemesis and melena with history of very high blood pressure and chronic kidney disease Stage II & other medical conditions as mentioned in H&P His hemoglobin dropped to 8.9 from 10.1 on 10/06/2020 No more hematemesis Status post partially successful EGD Denies any significant symptoms 10/08/20 The patient was seen and examined integument unit He denies any abdominal pain, discomfort, nausea and/or vomiting He has not moved his bowels in the Denies any other symptoms Review of Systems Review of Systems: All systems reviewed and are unremarkable except as noted below Gastrointestinal: + constipation; no abdominal pain, no bloating and no nausea Physical Exam Physical Exam: Lying in bed comfortably Constitutional: well developed, well nourished and + obese; not ill appearing Eyes: PERRL, conjunctivae normal, anicteric sclerae ENMT: external ear and nose normal, oropharynx normal Neck: trachea midline, no thyromegaly Respiratory: no respiratory distress Auscultation: lungs clear to auscultation bilaterally Cardiovascular: Rate/Rhythm: regular rate and regular rhythm Heart Sounds: no murmur Extremities: no edema Gastrointestinal (Abdomen): Inspection/Auscultation: normal bowel sounds; abdomen not distended Percussion/Palpation: abdomen soft; abdomen nontender Musculoskeletal: Has no acute arthritis in any joint Neurologic: Alert, awake and oriented x3 Psychiatric: A+Ox3, euthymic affect Lymphatic: no cervical or axillary lymphadenopathy Results & Data Results & Data ([facility]) Vital Signs (Past 12 Hours) Vital Signs Temp Pulse Pulse Resp BP Pulse Ox Pulse Ox 10/08/20 11:31 37.0 C 67 20 162/82 H 100 10/08/20 08:00 78 10/08/20 07:49 83 20 165/77 H 100 10/08/20 03:55 37.0 C 67 18 154/80 H 100 10/08/20 02:08 98 Laboratory Results Short CBC 10/07/20 10/08/20 Range/Units 17:21 08:17 WBC 6.14 (4.8-10.8) K/uL Hgb 8.6 L 7.8 L (14.0-18.0) g/dL Hct 25.9 L 23.9 L (42-52) % Plt Count 221 (130-400) K/uL BMP 10/08/20 08:17 Sodium 145 Potassium 3.6 Chloride 115 H Carbon Dioxide 27 BUN 36 H Creatinine 1.40 Glucose 170 H Calcium 8.3 L Medications Administered Current Inpatient Medications Carvedilol (Carvedilol 25 Mg Tab) 25 mg PO BID ESTHELA Stop: 11/06/20 08:59 Last Admin: 10/07/20 11:03 Dose: Not Given Documented by: Clonidine HCl (Clonidine Hcl 0.3 Mg Tab) 0.3 mg PO BID ESTHELA Stop: 11/06/20 08:59 Last Admin: 10/07/20 11:03 Dose: Not Given Documented by: Dextrose (Dextrose 50% 50 Ml Syringe) 25 - 50 ml IV UD PRN; Protocol PRN Reason: Hypoglycemia Protocol Stop: 11/06/20 02:44 Fluticasone Propionate (Fluticasone Propionate Na Spr 16 Gm Btl) 2 sprays NA DAILY [facility] Stop: 11/06/20 08:59 Last Admin: 10/08/20 08:36 Dose: 2 sprays Documented by: Glucagon (Glucagon For Inj 1 Mg Vial) 1 mg SQ UD PRN; Protocol PRN Reason: Hypoglycemia Protocol Stop: 11/06/20 02:44 Glucose (Glucose 40% Gel 15 Gm Tube) 15 - 30 gm PO UD PRN; Protocol PRN Reason: Hypoglycemia Protocol Stop: 11/06/20 02:44 Glucose (Glucose 10 Tabs/Tube) 4 - 8 tabs PO UD PRN; Protocol PRN Reason: Hypoglycemia Protocol Stop: 11/06/20 02:44 Pantoprazole Sodium 40 mg/ (Syringe) 10 mls @ 5 mls/min IV BID ESTHELA Stop: 11/07/20 12:29 Insulin Aspart (Insulin Aspart 100 Units/Ml 3 Ml Pen) 0 units SC ACHS ESTHELA Stop: 11/06/20 05:59 Last Admin: 10/08/20 12:19 Dose: Not Given Documented by: Metoprolol Tartrate (Metoprolol Tartrate 1 Mg/Ml Vial) 5 mg IV Q6 PRN PRN Reason: Blood Pressure - High Stop: 11/06/20 11:59 Miscellaneous (Carbohydrates For Hypoglycemia ) 15 - 30 gm PO UD PRN PRN Reason: Hypoglycemia Treatment Stop: 11/06/20 02:44 Nitroglycerin (Nitroglycerin Sl 0.4 Mg/Tab Tab) 0.4 mg SL UD PRN PRN Reason: Chest Pain Stop: 11/06/20 02:07 Ondansetron HCl (Ondansetron Inj 2 Mg/Ml 2 Ml Vial) 4 mg IV Q6H PRN PRN Reason: Nausea Stop: 11/06/20 02:07 (1) Hypertension Hypertension type: essential hypertension Qualified Code(s): I10 - Essential (primary) hypertension
[2020-10-08] MEDS: PANTOprazole 40 MG in SYRINGE 0 ML IV SCH ×2 (13:38→21:08)
[2020-10-09] MEDS ORDERED: ZOLPIDEM TARTRATE 5 MG TAB PO STA (00:43)
[2020-10-09 07:26] LABS: Basophils # (auto) 0.05 K/uL (0-0.2); Basophils % (auto) 0.8 %; Eosinophils # (auto) 0.16 K/uL (0-0.5); Eosinophils % (auto) 2.5 %; Hemoglobin 7.8 g/dL (14.0-18.0); Immature Granulocytes # (auto) 0.01 K/uL (0.00-0.02); Immature Granulocytes % (auto) 0.2 %; Lymphocytes # (auto) 1.87 K/uL (1.2-3.4); Lymphocytes % (auto) 29.1 %; Mean Corpuscular Hemoglobin 29.4 pg (25-34); Mean Corpuscular Hgb Conc 33.9 g/dL (32-36); Mean Corpuscular Volume 86.8 fL (80-100); Mean Platelet Volume 9.8 fL (7.4-10.4); Monocytes # (auto) 0.55 K/uL (0.11-0.59); Monocytes % (auto) 8.6 %; Neutrophils # (auto) 3.78 K/uL (1.4-6.5); Neutrophils % (auto) 58.8 %; Platelet Count 221 K/uL (130-400); RDW Coefficient of Variation 14.7 % (11.5-14.5); RDW Standard Deviation 46.2 fL (36.4-46.3); Red Blood Count 2.65 M/uL (4.7-6.1); White Blood Count 6.42 K/uL (4.8-10.8)
[2020-10-09 07:43] LABS: RBC Morphology Unremarkable
[2020-10-09] MEDS: PANTOprazole 40 MG in SYRINGE 0 ML IV SCH ×2 (08:16→20:51)
[2020-10-09] MEDS: INSULIN ASPART 100 UNITS/ML 3 ML PEN SC SCH ×4 (08:16→22:42)
[2020-10-09] MEDS: FLUTICASONE PROPIONATE NA SPR 16 GM BTL SCH (08:16)
[2020-10-09] MEDS ORDERED: lisinopril 40 MG TAB PO SCH (10:30)
[2020-10-09] MEDS ORDERED: MAGNESIUM HYDROXIDE SUSP 30 ML UDC PO ONE (10:54)
--- NOTE | 2020-10-09 12:04 | Hospitalist Progress Note ---
Date of Service October 09, 2020 Assessment & Plan (1) Acute GI bleeding: Presented with open wound acute onset likely upper GI bleed With hematemesis and melena-no history of any NSAID use Minimal epigastric discomfort prior to this event Hemoglobin dropped a little from 10.1 to 8.9 as of 10/07/2020 Appreciate GI input Status post partially successful EGD due to blood-filled stomach 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-Elias tear We will continue intravenous Protonix and monitor H&H Likely to have repeat EGD on Saturday or earlier if the condition gets worse Hemoglobin is a little dropped to 7.8 from 8.6 yesterday No more melena but has not moved yet We will continue Protonix intravenously 2 times daily-likely EGD on Saturday Awaiting EGD tomorrow Constipation Has not had a bowel movement for the last 2 days We will give one-time dose of milk of magnesia (2) Hypertension: Has history of hypertension since a child Likely secondary to chronic kidney disease with ongoing proteinuria Blood pressure seems reasonably controlled while in the hospital We will continue current medication Blood pressure remains at the upper side 162/82 We will restart his Coreg and hydralazine today to control blood pressure (3) Chronic kidney disease (CKD): History of chronic kidney disease stage II Ongoing proteinuria Creatinine is up secondary to GI bleed We will monitor kidney function-creatinine has been normalized (4) Sleep apnea with use of continuous positive airway pressure (CPAP): Continue CPAP at night History of gout We will hold allopurinol Hyperlipidemia Continue statin DVT prophylaxis SCDs Advised to ambulate more Admission and Anticipated Discharge Date Admission Date: October 07, 2020 Subjective 10/07/2020 The patient was seen and examined in telemetry unit He was admitted yesterday with hematemesis and melena with history of very high blood pressure and chronic kidney disease Stage II & other medical conditions as mentioned in H&P His hemoglobin dropped to 8.9 from 10.1 on 10/06/2020 No more hematemesis Status post partially successful EGD Denies any significant symptoms 10/08/20 The patient was seen and examined in telemetry unit He denies any abdominal pain, discomfort, nausea and/or vomiting He has not moved his bowels in the Denies any other symptoms 10/09/2020 The patient was seen and examined in telemetry unit He has not had any bowel movement for the last 2 days otherwise denies any other significant symptoms His hemoglobin remains stable at 7.8 Review of Systems Review of Systems: All systems reviewed and are unremarkable except as noted below Gastrointestinal: + constipation; no abdominal pain, no bloating and no nausea Physical Exam Physical Exam: Lying in bed comfortably Constitutional: well developed, well nourished and + obese; not ill appearing Eyes: PERRL, conjunctivae normal, anicteric sclerae ENMT: external ear and nose normal, oropharynx normal Neck: trachea midline, no thyromegaly Respiratory: no respiratory distress Auscultation: lungs clear to auscultation bilaterally Cardiovascular: Rate/Rhythm: regular rate and regular rhythm Heart Sounds: no murmur Extremities: no edema Gastrointestinal (Abdomen): Inspection/Auscultation: normal bowel sounds; abdomen not distended Percussion/Palpation: abdomen soft; abdomen nontender Musculoskeletal: No acute arthritis in any joint Neurologic: Alert, awake and oriented x3. No focal sensory and motor deficit appreciated Psychiatric: A+Ox3, euthymic affect Lymphatic: no cervical or axillary lymphadenopathy Results & Data Results & Data ([facility]) Vital Signs (Past 12 Hours) Vital Signs Temp Pulse Pulse Resp BP Pulse Ox Pulse Ox 10/09/20 11:40 37.7 C H 63 18 174/87 H 100 10/09/20 08:00 59 L 10/09/20 07:48 37.0 C 76 18 177/87 H 99 10/09/20 04:15 36.7 C 74 18 154/76 H 98 10/09/20 03:07 71 10/09/20 02:00 98 Laboratory Results Short CBC 10/09/20 Range/Units 06:46 WBC 6.42 (4.8-10.8) K/uL Hgb 7.8 L (14.0-18.0) g/dL Hct 23.0 L (42-52) % Plt Count 221 (130-400) K/uL Medications Administered Current Inpatient Medications Carvedilol (Carvedilol 25 Mg Tab) 25 mg PO BID ESTHELA Stop: 11/06/20 08:59 Last Admin: 10/07/20 11:03 Dose: Not Given Documented by: Clonidine HCl (Clonidine Hcl 0.3 Mg Tab) 0.3 mg PO BID ESTHELA Stop: 11/06/20 08:59 Last Admin: 10/07/20 11:03 Dose: Not Given Documented by: Dextrose (Dextrose 50% 50 Ml Syringe) 25 - 50 ml IV UD PRN; Protocol PRN Reason: Hypoglycemia Protocol Stop: 11/06/20 02:44 Fluticasone Propionate (Fluticasone Propionate Na Spr 16 Gm Btl) 2 sprays NA DAILY [facility]HE[facility] Stop: 11/06/20 08:59 Last Admin: 10/09/20 08:16 Dose: 2 sprays Documented by: Glucagon (Glucagon For Inj 1 Mg Vial) 1 mg SQ UD PRN; Protocol PRN Reason: Hypoglycemia Protocol Stop: 11/06/20 02:44 Glucose (Glucose 40% Gel 15 Gm Tube) 15 - 30 gm PO UD PRN; Protocol PRN Reason: Hypoglycemia Protocol Stop: 11/06/20 02:44 Glucose (Glucose 10 Tabs/Tube) 4 - 8 tabs PO UD PRN; Protocol PRN Reason: Hypoglycemia Protocol Stop: 11/06/20 02:44 Hydralazine HCl (Hydralazine Hcl 25 Mg Tab) 25 mg PO TID [facility] Stop: 11/08/20 13:59 Pantoprazole Sodium 40 mg/ (Syringe) 10 mls @ 5 mls/min IV BID ESTHELA Stop: 11/07/20 12:29 Last Admin: 10/09/20 08:16 Dose: 5 mls/min Documented by: Insulin Aspart (Insulin Aspart 100 Units/Ml 3 Ml Pen) 0 units SC ACHS ESTHELA Stop: 11/06/20 05:59 Last Admin: 10/09/20 11:44 Dose: Not Given Documented by: Metoprolol Tartrate (Metoprolol Tartrate 1 Mg/Ml Vial) 5 mg IV Q6 PRN PRN Reason: Blood Pressure - High Stop: 11/06/20 11:59 Miscellaneous (Carbohydrates For Hypoglycemia ) 15 - 30 gm PO UD PRN PRN Reason: Hypoglycemia Treatment Stop: 11/06/20 02:44 Nitroglycerin (Nitroglycerin Sl 0.4 Mg/Tab Tab) 0.4 mg SL UD PRN PRN Reason: Chest Pain Stop: 11/06/20 02:07 Ondansetron HCl (Ondansetron Inj 2 Mg/Ml 2 Ml Vial) 4 mg IV Q6H PRN PRN Reason: Nausea Stop: 11/06/20 02:07 (1) Hypertension Hypertension type: essential hypertension Qualified Code(s): I10 - Essential (primary) hypertension
[2020-10-09] MEDS: hydrALAZINE HCL 25 MG TAB PO SCH ×2 (12:19→20:53)
--- NOTE | 2020-10-09 14:58 | Progress Notes ---
DATE: 10/09/2020 HISTORY OF PRESENT ILLNESS: The patient is doing well. He is ambulating. He denies any abdominal pain. He has had no nausea, vomiting and he has not had a bowel movement for several days. PHYSICAL EXAMINATION: VITAL SIGNS: His most recent blood pressure is 174/87, pulse is 63, temperature is 37.7. SKIN: Anicteric. EYES: Show anicteric sclerae. MOUTH: Clear of lesions. NECK: Supple. CHEST: Clear. ABDOMEN: Benign with good bowel sounds. NEUROLOGIC: He is alert and oriented x3 and neurologically grossly intact. LABORATORY DATA: Hemoglobin is 7.8 on labs this morning with a white blood cell count of 6.4 and a platelet count of 221,000. IMPRESSION AND PLAN: A 45-year-old gentleman with history of GI bleeding and upper GI source with hemoglobin that remained stable at 7.8. Given that the stomach was poorly seen due to large blood clots, we will arrange a repeat upper endoscopy for Saturday morning. He should remain on a PPI and I will make him n.p.o. after midnight. The patient agrees.
[2020-10-09] MEDS: carvediloL 25 MG TAB PO SCH (20:54)
[2020-10-09] MEDS: cloNIDine HCL 0.3 MG TAB PO SCH (20:55)
[2020-10-10] MEDS: INSULIN ASPART 100 UNITS/ML 3 ML PEN SC SCH ×2 (08:00→12:15)
[2020-10-10] MEDS: PANTOprazole 40 MG in SYRINGE 0 ML IV SCH (08:01)
[2020-10-10] MEDS: carvediloL 25 MG TAB PO SCH (08:01)
[2020-10-10] MEDS: cloNIDine HCL 0.3 MG TAB PO SCH (08:01)
[2020-10-10] MEDS: hydrALAZINE HCL 25 MG TAB PO SCH (08:01)
[2020-10-10] MEDS: FLUTICASONE PROPIONATE NA SPR 16 GM BTL SCH (08:02)
--- NOTE | 2020-10-10 08:43 | History & Physical Bridge Note ---
Date of Service October 10, 2020 History & Physical Bridge Note I have examined the patient, reviewed the History & Physical and in the interval since the performance of the History & Physical I have noted the following changes of clinical significance: no changes noted Repeat egd given anemia but no reports of melena PE alert and oriented, Pulm - ctab, abd soft nt nd EGD for evaluation of anemia and reported prior hematemesis
--- NOTE | 2020-10-10 08:43 | Anesthesiology Consultation ---
Date of Service October 10, 2020 Assessment & Plan Chart Review Chart Review: Acceptable Risk for Surgery Consults Requested none History Surgery Operation Date: 10/07/20 16:00 Proposed Procedures p Esophagogastroduodenoscopy Dr Colmenarse - Nurys Colmenares DO Operation Date: 10/10/20 16:30 Proposed Procedures p Esophagogastroduodenoscopy Dr Marianne Lynn MD Height/Weight Height: 6 ft Weight: 106.3 kg Allergies Allergy/AdvReac Type Severity Reaction Status Date / Time No Known Allergies Allergy Mild Verified 10/06/20 21:38 Medications Home Medications Medication Instructions Recorded Confirmed Last Taken allopurinol 300 mg tablet 300 mg PO QAM 08/19/19 10/06/20 Unknown carvedilol 25 mg tablet 25 mg PO BID 08/19/19 10/06/20 Unknown fenofibrate micronized 134 mg 134 mg PO DAILY 08/19/19 10/06/20 Unknown capsule hydrochlorothiazide 25 mg tablet 25 mg PO DAILY 08/19/19 10/06/20 Unknown lisinopril 40 mg tablet 40 mg PO DAILY 08/19/19 10/06/20 Unknown rosuvastatin 10 mg tablet 10 mg PO DAILY 08/19/19 10/06/20 Unknown amlodipine 5 mg PO DAILY 10/06/20 10/06/20 Unknown clonidine HCl 0.3 mg PO BID 10/06/20 10/06/20 Unknown fluticasone propionate 2 spray INTRANASAL DAILY 10/06/20 10/06/20 Unknown hydralazine 25 mg PO TID 10/06/20 10/06/20 Unknown Active Medications Generic Name Dose Route Start Last Admin Trade Name Jaylanq PRN Reason Stop Dose Admin Carvedilol 25 mg 10/07/20 09:00 10/10/20 08:01 Carvedilol 25 Mg Tab PO 11/06/20 08:59 25 mg BID ESTHELA Administration Clonidine HCl 0.3 mg 10/07/20 09:00 10/10/20 08:01 Clonidine Hcl 0.3 Mg Tab PO 11/06/20 08:59 0.3 mg BID ESTHELA Administration Fluticasone Propionate 2 sprays 10/07/20 09:00 10/10/20 08:02 Fluticasone Propionate Na Spr 16 Gm Btl NA 11/06/20 08:59 2 sprays DAILY ESTHELA Administration Hydralazine HCl 25 mg 10/09/20 14:00 10/10/20 08:01 Hydralazine Hcl 25 Mg Tab PO 11/08/20 13:59 25 mg TID ESTHELA Administration Pantoprazole Sodium 40 mg/ 10 mls @ 5 mls/min 10/08/20 12:30 10/10/20 08:01 Syringe IV 11/07/20 12:29 5 mls/min BID ESTHELA Administration Insulin Aspart 0 units 10/07/20 16:30 10/10/20 08:00 Insulin Aspart 100 Units/Ml 3 Ml Pen SC 11/06/20 05:59 Not Given ACHS ESTHELA NPO Date Last Intake of Fluids: 10/09/20 Time Last Intake of Fluids: 23:59 Date Last Intake of Solids: 10/09/20 Time Last Intake of Solids: 23:59 Past Medical History Medical History Dyslipidemia HTN (hypertension) Past Surgical History Surgical History Hx of rotator cuff surgery Hx of wisdom tooth extraction Social History Smoking Status: Never smoker Hx Alcohol Use: Yes Alcohol type: other alcohol intake frequency: holidays/special occasions only Hx Substance Use: No Physical Exam Vital Signs Last Vital Signs Temp 36.8 C 10/10/20 08:36 Pulse 73 10/10/20 08:36 Resp 18 10/10/20 08:36 BP 168/87 H 10/10/20 08:36 Pulse Ox 97 10/10/20 08:36 Testing Laboratory Results 10/09/20 06:46 10/08/20 08:17 PT 11.6 Seconds (9.0-12.0) 10/06/20 20:07 INR 1.2 (0.9-1.1) H 10/06/20 20:07 Blood Type O Positive 10/06/20 20:07 Antibody Screen NEGATIVE 10/06/20 20:07 10/10/20 07:18 POC Glucose 134 H
[2020-10-10] MEDS ORDERED: fentaNYL citrate 100 MCG/2 ML VIAL ONE (08:47)
--- NOTE | 2020-10-10 09:08 | GI REPORT ---
Patient Name: Tino Tucker Procedure Date: 10/10/2020 8:37 AM Date of : 1975 Admit Type: Inpatient Age: 45 Gender: Male Attending MD: Lori Falk M.d. Procedure: Upper GI endoscopy Providers: Lori Falk M.d. Referring MD: Briana Palacio Indications: Anemia without bleeding over the weekend Medicines: Fentanyl micrograms IV Complications: No immediate complications. Estimated Blood Loss: Estimated blood loss: none. Procedure: Pre-Anesthesia Assessment: - Patient identification and proposed procedure were verified prior to the procedure by the physician, the nurse and the anesthesiologist. The procedure was verified in the pre-procedure area. - Prior to the procedure, a History and Physical was performed, and patient medications, allergies and sensitivities were reviewed. The patient's tolerance of previous anesthesia was reviewed. - The risks and benefits of the procedure and the sedation options and risks were discussed with the patient. All questions were answered and informed consent was obtained. After obtaining informed consent, the endoscope was passed under direct vision. Throughout the procedure, the patient's blood pressure, pulse, and oxygen saturations were monitored continuously. The Endoscope was introduced through the mouth, and advanced to the third part of duodenum. The upper GI endoscopy was accomplished without difficulty. Findings: The examined esophagus appeared normal. A localized single nodule was found at the GE junction - this was biopsied during his initial egd on Saturday therefore not biopsied again. The examined stomach appeared normal. Localized thick gastric folds were found in the gastric antrum. The duodenal bulb, second portion, and third portion of the duodenum appeared normal - bile was present. Impression: - Normal esophagus. - Nodule found at the ge junction - previously biopsied. - Normal stomach. - A few enlarged antral gastric folds - Normal duodenal bulb, second and third portion of the duodenum. Recommendation: - Return to floor. - Consider PPI twice daily orally. - No signs of active gi bleeding were noted on today's examination. - Await pathology results from biopsies done Saturday during his initial egd. Tamra Novak M.d. 10/10/2020 9:08:07 AM This report has been signed electronically. Note Initiated On: 10/10/2020 8:37 AM Number of Addenda: 0 I attest to the content of the Intraoperative Record and orders documented therein, exceptions below {[id number]}
[2020-10-10] MEDS ORDERED: PROPOFOL IV EMULSION 10 MG/ML 20 ML VIAL IV ONE (09:11)
[2020-10-10] MEDS ORDERED: LIDOCAINE HCL 2% 2 ML VIAL/AMP(20MG/ML) INFIL ONE (09:11)
[2020-10-10] MEDS ORDERED: ONDANSETRON INJ 2 MG/ML 2 ML VIAL ONE (09:11)
--- NOTE | 2020-10-10 09:12 | Communication Note ---
Date of Service: October 10, 2020 EGD completed in endo. Findings c/w esophageal nodule found on index endoscopy on 10/07- biopsies pending from the original egd Normal stomach though mildly prominent antral gastric folds, normal duodenum to d3 with the presence of bile. No active signs of bleeding. Recs: BID oral ppi Liquid diet and advance to soft diet as tolerated Outpatient colonoscopy will be scheduled
--- NOTE | 2020-10-10 09:14 | Anesthesiology Progress Note ---
Date of Service October 10, 2020 Anesthesia Post Procedure Vital Signs Vital Signs: Temp Pulse Pulse Resp BP Pulse Ox Pulse Ox 10/10/20 08:36 36.8 C 73 18 168/87 H 97 10/10/20 07:18 37 C 54 L 16 149/80 H 98 10/10/20 03:09 36.4 C L 51 L 18 121/68 98 10/10/20 03:00 61 10/10/20 02:00 98 10/09/20 23:43 36.8 C 52 L 18 120/67 97 10/09/20 19:11 37.2 C 60 16 166/84 H 97 10/09/20 15:37 36.9 C 64 19 160/79 H 97 10/09/20 11:40 37.7 C H 63 18 174/87 H 100 Transfer of Care Handoff Completed per policy Notes Mental Status: alert / awake / arousable and participated in evaluation Patient Amnestic to Procedure: Yes Nausea / Vomiting: adequately controlled Pain: adequately controlled Airway Patency, RR, SpO2: stable & adequate BP & HR: stable & adequate Hydration State: stable & adequate Anesthetic Complications: no major complications apparent
--- NOTE | 2020-10-10 11:44 | Hospitalist Progress Note ---
Date of Service October 10, 2020 Assessment & Plan (1) Acute GI bleeding: Presented with open wound acute onset likely upper GI bleed With hematemesis and melena-no history of any NSAID use Minimal epigastric discomfort prior to this event Hemoglobin dropped a little from 10.1 to 8.9 as of 10/07/2020 Appreciate GI input Status post partially successful EGD due to blood-filled stomach 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-Elias tear We will continue intravenous Protonix and monitor H&H Likely to have repeat EGD on Saturday or earlier if the condition gets worse Hemoglobin is a little dropped to 7.8 from 8.6 yesterday No more melena but has not moved yet We will continue Protonix intravenously 2 times daily-likely EGD on Saturday Awaiting EGD tomorrow-no acute bleeding areas or any ulceration or any evidence of bleeding Started on diet and was advanced as tolerated Will be discharged this afternoon Will have outpatient colonoscopy Constipation Has not had a bowel movement for the last 2 days We will give one-time dose of milk of magnesia (2) Hypertension: Has history of hypertension since a child Likely secondary to chronic kidney disease with ongoing proteinuria Blood pressure seems reasonably controlled while in the hospital We will continue current medication Blood pressure remains at the upper side 162/82 We will restart his Coreg and hydralazine today to control blood pressure Controlled (3) Chronic kidney disease (CKD): History of chronic kidney disease stage II Ongoing proteinuria Creatinine is up secondary to GI bleed We will monitor kidney function-creatinine has been normalized (4) Sleep apnea with use of continuous positive airway pressure (CPAP): Continue CPAP at night History of gout We will hold allopurinol Hyperlipidemia Continue statin DVT prophylaxis SCDs Advised to ambulate more Discharge home this afternoon Admission and Anticipated Discharge Date Admission Date: October 07, 2020 Subjective 10/07/2020 The patient was seen and examined in telemetry unit He was admitted yesterday with hematemesis and melena with history of very high blood pressure and chronic kidney disease Stage II & other medical conditions as mentioned in H&P His hemoglobin dropped to 8.9 from 10.1 on 10/06/2020 No more hematemesis Status post partially successful EGD Denies any significant symptoms 10/08/20 The patient was seen and examined in telemetry unit He denies any abdominal pain, discomfort, nausea and/or vomiting He has not moved his bowels in the Denies any other symptoms 10/09/2020 The patient was seen and examined in telemetry unit He has not had any bowel movement for the last 2 days otherwise denies any other significant symptoms His hemoglobin remains stable at 7.8 10/10/2020 The patient was seen and examined in telemetry unit He did not have any more hematemesis and or melena He has been feeling a lot better and hemoglobin remained stable for the last 2 days He is a status post negative EGD Review of Systems Review of Systems: All systems reviewed and are unremarkable except as noted below Gastrointestinal: + constipation; no abdominal pain, no bloating and no nausea Physical Exam Physical Exam: Lying in bed comfortably Constitutional: well developed, well nourished and + obese; not ill appearing Eyes: PERRL, conjunctivae normal, anicteric sclerae ENMT: external ear and nose normal, oropharynx normal Neck: trachea midline, no thyromegaly Respiratory: no respiratory distress Auscultation: lungs clear to auscultation bilaterally Cardiovascular: Rate/Rhythm: regular rate and regular rhythm Heart Sounds: no murmur Extremities: no edema Gastrointestinal (Abdomen): Inspection/Auscultation: normal bowel sounds; abdomen not distended Percussion/Palpation: abdomen soft; abdomen nontender Skin: No acute arthritis in any joint Neurologic: PERRL, EOMI, accommodation nl, no face palsy, no dysarthria Psychiatric: A+Ox3, euthymic affect Lymphatic: no cervical or axillary lymphadenopathy Results & Data Results & Data ([facility]) Vital Signs (Past 12 Hours) Vital Signs Temp Pulse Pulse Pulse Resp BP Pulse Ox 10/10/20 09:35 65 16 123/71 96 10/10/20 09:22 65 16 133/84 99 10/10/20 09:09 65 15 108/52 L 98 10/10/20 08:36 36.8 C 73 18 168/87 H 97 10/10/20 07:18 37 C 54 L 16 149/80 H 98 10/10/20 03:09 36.4 C L 51 L 18 121/68 98 10/10/20 03:00 61 10/10/20 02:00 10/09/20 23:43 36.8 C 52 L 18 120/67 97 Pulse Ox 10/10/20 09:35 10/10/20 09:22 10/10/20 09:09 10/10/20 08:36 10/10/20 07:18 10/10/20 03:09 10/10/20 03:00 10/10/20 02:00 98 10/09/20 23:43 Medications Administered Current Inpatient Medications Carvedilol (Carvedilol 25 Mg Tab) 25 mg PO BID ESTHELA Stop: 11/06/20 08:59 Last Admin: 10/10/20 08:01 Dose: 25 mg Documented by: Clonidine HCl (Clonidine Hcl 0.3 Mg Tab) 0.3 mg PO BID ESTHELA Stop: 11/06/20 08:59 Last Admin: 10/10/20 08:01 Dose: 0.3 mg Documented by: Dextrose (Dextrose 50% 50 Ml Syringe) 25 - 50 ml IV UD PRN; Protocol PRN Reason: Hypoglycemia Protocol Stop: 11/06/20 02:44 Fluticasone Propionate (Fluticasone Propionate Na Spr 16 Gm Btl) 2 sprays NA DAILY ESTHELA Stop: 11/06/20 08:59 Last Admin: 10/10/20 08:02 Dose: 2 sprays Documented by: Glucagon (Glucagon For Inj 1 Mg Vial) 1 mg SQ UD PRN; Protocol PRN Reason: Hypoglycemia Protocol Stop: 11/06/20 02:44 Glucose (Glucose 40% Gel 15 Gm Tube) 15 - 30 gm PO UD PRN; Protocol PRN Reason: Hypoglycemia Protocol Stop: 11/06/20 02:44 Glucose (Glucose 10 Tabs/Tube) 4 - 8 tabs PO UD PRN; Protocol PRN Reason: Hypoglycemia Protocol Stop: 11/06/20 02:44 Hydralazine HCl (Hydralazine Hcl 25 Mg Tab) 25 mg PO TID ESTHELA Stop: 11/08/20 13:59 Last Admin: 10/10/20 08:01 Dose: 25 mg Documented by: Pantoprazole Sodium 40 mg/ (Syringe) 10 mls @ 5 mls/min IV BID ESTHELA Stop: 11/07/20 12:29 Last Admin: 10/10/20 08:01 Dose: 5 mls/min Documented by: Insulin Aspart (Insulin Aspart 100 Units/Ml 3 Ml Pen) 0 units SC ACHS ESTHELA Stop: 11/06/20 05:59 Last Admin: 10/10/20 08:00 Dose: Not Given Documented by: Metoprolol Tartrate (Metoprolol Tartrate 1 Mg/Ml Vial) 5 mg IV Q6 PRN PRN Reason: Blood Pressure - High Stop: 11/06/20 11:59 Miscellaneous (Carbohydrates For Hypoglycemia ) 15 - 30 gm PO UD PRN PRN Reason: Hypoglycemia Treatment Stop: 11/06/20 02:44 Nitroglycerin (Nitroglycerin Sl 0.4 Mg/Tab Tab) 0.4 mg SL UD PRN PRN Reason: Chest Pain Stop: 11/06/20 02:07 Ondansetron HCl (Ondansetron Inj 2 Mg/Ml 2 Ml Vial) 4 mg IV Q6H PRN PRN Reason: Nausea Stop: 11/06/20 02:07 (1) Hypertension Hypertension type: essential hypertension Qualified Code(s): I10 - Essential (primary) hypertension
--- NOTE | 2020-10-10 18:28 | Discharge Summary ---
Date of Service October 10, 2020 Admission HPI Per Admitting Provider DICTATED BY: Miguel A Rick MD DATE OF ADMISSION: 10/07/2020 CHIEF COMPLAINT: GI bleed. HISTORY OF PRESENT ILLNESS: This is a 45-year-old male with past medical history significant for gout, chronic sinusitis, allergic rhinitis, moderate obstructive sleep apnea, on CPAP, hypertension, obesity, chronic kidney disease stage II, persistent proteinuria, who presents with hematemesis. The patient says around 7:00 p.m., he had several episodes of bloody vomiting. Prior to that, he had episode of black stools. This is the first time he is having this and they brought the utensil in which he vomited. It seems to be a significant amount of bloody vomiting. Currently, the vomiting has stopped. His hemoglobin is 10.1 in the ER and his baseline hemoglobin possibly around 14. Currently resting comfortably and hemodynamically stable. The patient denies taking any aspirin or any [id number] NSAIDs. Does not smoke. Drinks alcohol occasionally. He had an episode of anal fissure about 15 years ago. At that time, the colonoscopy was done which was okay as per the patient, since then no similar complaints. No abdominal pain. Denies any chest pain, no shortness of breath. [place] dizzy after this episode. No headache, no blurred vision, no earache, no runny nose, no sore throat, no loss of sense of smell or taste. No cough, no fever, no chills. Currently resting comfortably and hemodynamically stable. SARS-CoV-2 negative. Admission Exam Per Admitting Provider GENERAL: The patient is obese, not in acute distress. VITAL SIGNS: Temperature 36.6, pulse 62, respiratory rate 14, blood pressure 157/84, oxygen 99% on room air. HEENT: Pupils are equal, round, and reactive to light. No pallor, no icterus. Oral mucosa moist. NECK: No JVD, no neck masses seen. CARDIOVASCULAR: S1, S2 heard, regular rate and rhythm, no murmur, no gallop. RESPIRATORY SYSTEM: Normal AP diameter. No accessory muscle use. No wheezing, no crackles. ABDOMEN: Soft, bowel sounds present, nontender. No distention. CENTRAL NERVOUS SYSTEM: Cranial nerves II-XII are grossly intact. Nonfocal. EXTREMITIES: No edema, no erythema. Principal Diagnosis Acute GI bleed, likely secondary to Malgorzata-Elias tear, chronic kidney disease, hypertension, sleep apnea on CPAP Discharge Exam Constitutional well developed, well nourished and + obese; not ill appearing Eyes PERRL, conjunctivae normal, anicteric sclerae ENMT external ear and nose normal, oropharynx normal Neck trachea midline, no thyromegaly Respiratory no respiratory distress Auscultation: lungs clear to auscultation bilaterally Cardiovascular Rate/Rhythm: regular rate and regular rhythm Heart Sounds: no murmur Extremities: no edema Gastrointestinal (Abdomen) Inspection/Auscultation: normal bowel sounds; abdomen not distended Percussion/Palpation: abdomen soft; abdomen nontender Neurologic PERRL, EOMI, accommodation nl, no face palsy, no dysarthria Psychiatric A+Ox3, euthymic affect Lymphatic no cervical or axillary lymphadenopathy Discharge Data Allergies Allergy/AdvReac Type Severity Reaction Status Date / Time No Known Allergies Allergy Mild Verified 10/06/20 21:38 Consultations 10/07/20 00:12 ED Decision to Admit Stat 10/07/20 07:00 Consult Gastroenterology Routine Procedures Performed Operation Date: 10/07/20 16:00 Actual Procedures p EGD Biopsy Cytology - Nurys Colmenares, Operation Date: 10/10/20 16:30 Actual Procedures p Esophagogastroduodenoscopy - Lori Falk MD Ordered Studies 10/06/20 20:12 CT abd pelvis IV con only Urgent Hospital Course (1) Acute GI bleeding: Presented with open wound acute onset likely upper GI bleed With hematemesis and melena-no history of any NSAID use Minimal epigastric discomfort prior to this event Hemoglobin dropped a little from 10.1 to 8.9 as of 10/07/2020 Appreciate GI input Status post partially successful EGD due to blood-filled stomach 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-Elias tear We will continue intravenous Protonix and monitor H&H Likely to have repeat EGD on Saturday or earlier if the condition gets worse Hemoglobin is a little dropped to 7.8 from 8.6 yesterday No more melena but has not moved yet We will continue Protonix intravenously 2 times daily-likely EGD on Saturday Awaiting EGD tomorrow-no acute bleeding areas or any ulceration or any evidence of bleeding Started on diet and was advanced as tolerated Will be discharged this afternoon Will have outpatient colonoscopy Constipation Has not had a bowel movement for the last 2 days We will give one-time dose of milk of magnesia (2) Hypertension: Has history of hypertension since a child Likely secondary to chronic kidney disease with ongoing proteinuria Blood pressure seems reasonably controlled while in the hospital We will continue current medication Blood pressure remains at the upper side 162/82 We will restart his Coreg and hydralazine today to control blood pressure Controlled (3) Chronic kidney disease (CKD): History of chronic kidney disease stage II Ongoing proteinuria Creatinine is up secondary to GI bleed We will monitor kidney function-creatinine has been normalized (4) Sleep apnea with use of continuous positive airway pressure (CPAP): Continue CPAP at night History of gout We will hold allopurinol Hyperlipidemia Continue statin DVT prophylaxis SCDs Advised to ambulate more Discharge home this afternoon Total Time Total Time Spent Total Time Spent (In Minutes): 35 minutes Total Time Includes: Examination of the Patient, Discharge Planning, Medication Reconciliation and Communication With Other Providers Discharge Plan Discharge Items Patient Disposition: Home - Self-Care Reason For Visit: GI BLEED,VOMITING Discharge Diagnosis: Acute GI bleed, likely secondary to Malgorzata-Elias tear, chronic kidney disease, hypertension, sleep apnea on CPAP Condition on Discharge: Good Activity: Resume your previous activity Non-emergency contact: Primary Care Provider Call non-emergency contact if: you have any medication questions and your symptoms worsen Follow-up/Referrals: Jamey Brush MD [Staff Physician] - (Date & Time 10/17/2020 3:20 PM Provider Han Ngo MD Department [facility] ) Diet: Regular and Low Sodium (2gm) Addtl Attending Provider Instructions: Please do not take any aspirin and/or NSAIDs Keep your follow-up appointments with your PCP and [facility] Pending Studies at Discharge: Yes Studies:: Esophageal biopsy result Stand-Alone Forms: [employer], Smoking Cessation Medications and DC Order Prescriptions: New pantoprazole [Protonix] 40 mg tablet,delayed release (DR/EC) 40 mg PO BID Qty: 60 RF: 0 Continued lisinopril 40 mg tablet 40 mg PO DAILY RF: 0 hydrochlorothiazide 25 mg tablet 25 mg PO DAILY RF: 0 allopurinol 300 mg tablet 300 mg PO QAM RF: 0 carvedilol 25 mg tablet 25 mg PO BID RF: 0 rosuvastatin 10 mg tablet 10 mg PO DAILY RF: 0 fenofibrate micronized 134 mg capsule 134 mg PO DAILY RF: 0 clonidine HCl 0.3 mg tablet 0.3 mg PO BID RF: 0 hydralazine 25 mg tablet 25 mg PO TID RF: 0 amlodipine 5 mg tablet 5 mg PO DAILY RF: 0 fluticasone propionate 50 mcg/actuation spray,suspension 2 spray INTRANASAL DAILY RF: 0 Discharge Orders: Discharge Order (Routine); Ordered 10/10/20 Ordered By: Briana Palacio Admission Data Admit Date/Time: 10/07/20 00:29 Attending Provider: Briana Palacio Admit Provider: Miguel A Rick Primary Care Provider: Ta Mack III Other Providers: Miguel A Rick ; Tyler Lynn Other Interventions: Discharge Summary Assessment (RN) Last Done: 10/10/20 12:25
--- NOTE | 2020-10-18 07:56 | Coding Query ---
PATHOLOGY To promote full compliance with coding requirements relating to patient care, physician participation is requested in all cases of stained glass painter uncertainty. Please assist us with the question(s) below: Please review the Pathology report and please document any relevant diagnosis(es) below: Diagnosis(es):Kerns's esophagus with high grade dysplasia Thank you JUANY Hdz [facility]
== END 2020-10-10 13:10 | disposition home or self-care (01) | DRG 369 ==
LOC: ED 19:23 → 2S 10-07 00:29